=== PATIENT | male | born 1970 | race Two or more races ===

== ENCOUNTER 2023-12-27 15:57 | Inpatient (IN) | payer OTHER ==
[~2023-12-27] VITALS: Ht 175.3 cm; Wt 86.9 kg
[~2023-12-27 15:57] MED LIST: CLOP75TA28 PO; DIVA-93; GLIP5TAB21 PO; LEVE500T3 PO; LEVO75CA2 PO; OLAN20TA PO; PAROXETINE PO; PAXIL; QUET150T2; ROSU5TAB5 PO; VALS80TA4 PO; ZOLP10TA6 PO
[2023-12-27 17:01] LABS: Red Blood Cells 2.61 10^6/uL (4.5-5.90); White Blood Cell 6.4 10^3/uL (4.4-10.8)
[2023-12-27 17:02] LABS: Hematocrit 26.7 % (41.0-53.0); Hemoglobin 9.4 g/dL (13.5-17.5); Mean Corpuscular Hemoglobin 35.8 pg (28.0-32.0); Mean Corpuscular Volume 102.3 fL (80.0-100.0); Red Cell Distribution Width 14.8 % (11.8-14.3)
[2023-12-27 17:05] LABS: Chloride 101 mmol/L (98-107); Potassium 3.8 mmol/L (3.5-5.1); Sodium 139 mmol/L (136-145)
[2023-12-27 17:06] LABS: Anion Gap 10 (5-15); Carbon Dioxide 28 mmol/L (20-30)
[2023-12-27 17:11] LABS: BUN/Creatinine Ratio 14.6 (10.0-20.0); Blood Urea Nitrogen 23 mg/dL (9-23); Glucose 96 mg/dL (74-106)
[2023-12-27 17:12] VITALS: PULSE 89; RESP 16; O2SAT 96
[2023-12-27 17:15] LABS: Band Neutrophils % (manual) 0; Basophils % (manual) 0 (0.0-2.0); Blast Cells 0; Eosinophils % (manual) 0 (0-7); Metamyelocytes % 0; Myelocytes % 0; Promyelocytes % 0; Reactive Lymphocytes 0
[2023-12-27 17:16] LABS: Calcium 14.3 mg/dL (8.5-10.1)
[2023-12-27 18:36] LABS: Lymphocytes % (manual) 28 (10.0-50.0); Monocytes % (manual) 7 (0-12)
[2023-12-27 18:37] LABS: Macrocytosis Slight; Platelet Estimate Adequate
[2023-12-27 19:25] VITALS: PULSE 89; RESP 14; O2SAT 93
[2023-12-28] MEDS ORDERED: MORPHINE SULFATE INJ 2 MG/ml SYRG IV PRN ×2 (03:15→22:00)
[2023-12-28] MEDS ORDERED: ONDANSETRON HCL 4 MG/2 ML VIAL IV PRN (03:15)
[2023-12-28] MEDS ORDERED: NITROGLYCERIN 0.4 MG SL TAB SL PRN (03:15)
[2023-12-28] MEDS: SODIUM CHLORIDE 0.9% 1,000 ML IV SCH ×2 (03:22→14:30)
[2023-12-28 07:51] VITALS: PULSE 66; RESP 19; O2SAT 98
[2023-12-28] MEDS ORDERED: PAROXETINE 30 MG PO SCH (13:15)
[2023-12-28 14:40] VITALS: BP 126/60; PULSE 68; RESP 16; TEMP 98.7; O2SAT 91
[2023-12-28 14:45] VITALS: BP 126/60; PULSE 68; RESP 16; TEMP 98.7; O2SAT 91
[2023-12-28 16:51] VITALS: BP 128/69; PULSE 68; RESP 17; TEMP 98.4; O2SAT 97
[2023-12-28] MEDS ORDERED: CARB10TA21 PO (19:37)
[2023-12-28] MEDS ORDERED: DIVA-91 PO (19:37)
[2023-12-28] MEDS ORDERED: TRAZ-228 PO (19:37)
[2023-12-28] MEDS ORDERED: LEVE500T40 PO ×2 (19:37)
[2023-12-28] MEDS ORDERED: LEVO50TA7 PO (19:37)
[2023-12-28] MEDS ORDERED: LOSA-534 PO (19:37)
[2023-12-28] MEDS ORDERED: ASPI81CH74 PO (19:37)
[2023-12-28] MEDS ORDERED: ESCI20TA PO (19:37)
[2023-12-28] MEDS ORDERED: ATOR10TA PO (19:37)
[2023-12-28 20:00] VITALS: PULSE 65; PULSE 67; RESP 18; O2SAT 97
[2023-12-28 21:00] VITALS: BP 109/63; PULSE 67; RESP 18; TEMP 98.3; O2SAT 97
[2023-12-28] MEDS: traZODone HCL 50 MG TAB PO PRN (22:35)
[2023-12-28] MEDS: ATORVASTATIN 20 MG TAB PO SCH (22:37)
[2023-12-28] MEDS: HYDROcodone-ACET 5/325MG TAB PO PRN (22:38)
[2023-12-28] MEDS: levETIRAcetam 500 MG TAB PO SCH (22:38)
[2023-12-28] MEDS: OLANZapine 5 MG TAB PO SCH (22:39)
[2023-12-29] VITALS (8 sets, daily range): BP systolic 103–127; BP diastolic 62–81; PULSE 57–102; RESP 17–20; TEMP 97.6–98.6; O2SAT 92–97
[2023-12-29] MEDS ORDERED: LEVOTHYROXINE SODIUM 50 MCG TAB PO SCH (06:00)
[2023-12-29 06:22] LABS: White Blood Cell 4.3 10^3/uL (4.4-10.8)
[2023-12-29 06:26] LABS: Hematocrit 22.1 % (41.0-53.0); Mean Corpuscular Hemoglobin 37.3 pg (28.0-32.0); Mean Corpuscular Hgb Conc. 36.3 g/dL (32.0-36.0); Mean Corpuscular Volume 102.7 fL (80.0-100.0); Red Blood Cells 2.15 10^6/uL (4.5-5.90)
[2023-12-29 06:36] LABS: Band Neutrophils % (manual) 0; Basophils % (manual) 0 (0.0-2.0); Blast Cells 0; Metamyelocytes % 0; Myelocytes % 0; Promyelocytes % 0
[2023-12-29 06:43] LABS: Alanine Aminotransferase 19 U/L (7-40); Albumin 2.7 g/dL (3.2-4.8); Alkaline Phosphatase 65 U/L (46-116); Anion Gap 15 (5-15); Aspartate Aminotransferase 19 U/L (13-40); BUN/Creatinine Ratio 14.1 (10.0-20.0); Bilirubin, Total 0.4 mg/dL (0.2-1.0); Blood Urea Nitrogen 19 mg/dL (9-23); Carbon Dioxide 22 mmol/L (20-30); Chloride 103 mmol/L (98-107); Glucose 76 mg/dL (74-106); Potassium 3.7 mmol/L (3.5-5.1); Sodium 140 mmol/L (136-145); Total Protein 8.9 g/dL (5.7-8.2)
[2023-12-29] MEDS: PANTOPRAZOLE 40 MG TAB PO SCH (06:46)
[2023-12-29 06:49] LABS: Calcium 13.8 mg/dL (8.7-10.4)
[2023-12-29 08:41] LABS: Eosinophils % (manual) 2 (0-7); Lymphocytes % (manual) 32 (10.0-50.0); Macrocytosis Slight; Monocytes % (manual) 2 (0-12); Platelet Estimate Adequate; Reactive Lymphocytes 1
[2023-12-29] MEDS: LEVOTHYROXINE SODIUM 50 MCG TAB PO SCH (10:06)
[2023-12-29] MEDS: glipiZIDE 5 MG TAB PO SCH (10:07)
[2023-12-29] MEDS ORDERED: METF-370 PO (14:32)
[2023-12-29 17:11] LABS: % Iron Saturation 489.6 % (20-55)
[2023-12-30] VITALS (9 sets, daily range): BP systolic 115–158; BP diastolic 71–89; PULSE 65–118; RESP 16–18; TEMP 98–100.6; O2SAT 92–97
[2023-12-30 08:07] LABS: PSA Free 0.34 ng/mL; Prostate Specific Antigen 0.8 ng/mL (0.0-4.0)
[2023-12-30 10:28] LABS: INR 1.26 (0.9-1.15); Partial Thromboplastin Time 30.5 SEC (24.5-34.5); Prothrombin Time 13.1 sec (9.3-11.8)
[2023-12-31] VITALS (8 sets, daily range): BP systolic 107–132; BP diastolic 67–81; PULSE 65–98; RESP 16–19; TEMP 97.2–99.2; O2SAT 90–98
[2023-12-31 07:16] LABS: Basophils # (auto) 0 10 ^3/uL (0-0.2); Eosinophils # (auto) 0 10 ^3/uL (0-0.8); Hemoglobin 8.3 g/dL (13.5-17.5); Lymphocytes # (auto) 2.2 10 ^3/uL (0.4-5.4); Mean Corpuscular Volume 103.6 fL (80.0-100.0); Monocytes # (auto) 0.4 10 ^3/uL (0-1.3); Nucleated Red Blood Cells % 0.2 %
[2023-12-31 07:18] LABS: Basophils % (auto) 0.4 % (0.0-2.0); Eosinophils % (auto) 0.3 % (0.0-7.0); Hematocrit 23.3 % (41.0-53.0); Lymphocytes % (auto) 35.6 % (10.0-50.0); Mean Corpuscular Hgb Conc. 35.7 g/dL (32.0-36.0); Monocytes % (auto) 6.5 % (0.0-12.0); Neutrophils # (auto) 3.6 10 ^3/uL (1.6-8.6); Neutrophils % (auto) 57.2 % (37.0-80.0); Red Blood Cells 2.25 10^6/uL (4.5-5.90); Red Cell Distribution Width 15.1 % (11.8-14.3); White Blood Cell 6.3 10^3/uL (4.4-10.8)
[2023-12-31 07:31] LABS: Alanine Aminotransferase 20 U/L (7-40); Albumin 3.2 g/dL (3.2-4.8); Alkaline Phosphatase 68 U/L (46-116); Anion Gap 10 (5-15); Aspartate Aminotransferase 24 U/L (13-40); BUN/Creatinine Ratio 10.5 (10.0-20.0); Blood Urea Nitrogen 16 mg/dL (9-23); Carbon Dioxide 29 mmol/L (20-30); Chloride 98 mmol/L (98-107); Glucose 85 mg/dL (74-106); Potassium 3.8 mmol/L (3.5-5.1); Sodium 137 mmol/L (136-145)
[2023-12-31 07:32] LABS: Bilirubin, Total 0.3 mg/dL (0.2-1.0)
[2023-12-31 07:47] LABS: Calcium 15.4 mg/dL (8.5-10.1)
[2023-12-31] MEDS: SODIUM CHLORIDE 0.9% 1,000 ML IV SCH (08:00)
[2023-12-31 08:06] LABS: Immunoglobulin A 4895 mg/dL (90-386); Immunoglobulin G, Serum 346 mg/dL (603-1613); Immunoglobulin M 12 mg/dL (20-172)
[2023-12-31] MEDS: methylPREDNISolone SOD SUCC 125 MG/2 ML VL IV SCH (08:57)
[2023-12-31] MEDS: ZOLEDRONIC ACID 4 MG in SODIUM CHL 0.9% 100 ML IV ONE (12:49)
[2023-12-31 14:06] LABS: Albumin 3.2 g/dL (2.9-4.4); Alpha-1-Globulin 0.2 g/dL (0.0-0.4); Alpha-2-Globulin 0.5 g/dL (0.4-1.0); Gamma Globulin 0.5 g/dL (0.4-1.8); Globulin Total 6.5 g/dL (2.2-3.9); Protein Total Serum 9.7 g/dL (6.0-8.5)
[2024-01-01] VITALS (8 sets, daily range): BP systolic 108–123; BP diastolic 64–77; PULSE 76–101; RESP 17–21; TEMP 97.6–98.6; O2SAT 90–99
[2024-01-01 06:38] LABS: Basophils # (auto) 0 10 ^3/uL (0-0.2); Eosinophils # (auto) 0 10 ^3/uL (0-0.8); Hemoglobin 8.9 g/dL (13.5-17.5); Nucleated Red Blood Cells % 0.2 %; Red Blood Cells 2.42 10^6/uL (4.5-5.90)
[2024-01-01 06:43] LABS: Basophils % (auto) 0.1 % (0.0-2.0); Hematocrit 25.3 % (41.0-53.0); Lymphocytes # (auto) 1.3 10 ^3/uL (0.4-5.4); Mean Corpuscular Hemoglobin 36.8 pg (28.0-32.0); Mean Corpuscular Hgb Conc. 35.2 g/dL (32.0-36.0); Mean Corpuscular Volume 104.6 fL (80.0-100.0); Monocytes # (auto) 0.1 10 ^3/uL (0-1.3); Monocytes % (auto) 1.9 % (0.0-12.0); Neutrophils # (auto) 5.9 10 ^3/uL (1.6-8.6); Red Cell Distribution Width 15.1 % (11.8-14.3); White Blood Cell 7.4 10^3/uL (4.4-10.8)
[2024-01-01 06:51] LABS: Anion Gap 15 (5-15); Carbon Dioxide 24 mmol/L (20-30); Chloride 97 mmol/L (98-107); Potassium 3.8 mmol/L (3.5-5.1); Sodium 136 mmol/L (136-145)
[2024-01-01 06:56] LABS: BUN/Creatinine Ratio 16.5 (10.0-20.0); Glucose 135 mg/dL (74-106)
[2024-01-01 07:03] LABS: Blood Urea Nitrogen 27 mg/dL (9-23)
[2024-01-01 07:06] LABS: Calcium 14.3 mg/dL (8.5-10.1)
[2024-01-01] MEDS: fentaNYL CITRATE 100 MCG/2 ML VL IV ONE (09:32)
[2024-01-01] MEDS: LIDOCAINE 2%HCL (LOCAL ANESTH.) INJ 10ml MDV ONE (09:33)
[2024-01-01] MEDS: MIDAZOLAM HCL 2MG/2ML 2ml VIAL (1mg/ml) IV ONE (09:33)
[2024-01-02 01:00] VITALS: BP 115/64; PULSE 82; RESP 17; TEMP 98.2; O2SAT 93
[2024-01-02 05:27] VITALS: BP 113/62; PULSE 89; RESP 18; TEMP 98; O2SAT 100
[2024-01-02 05:55] LABS: Basophils # (auto) 0 10 ^3/uL (0-0.2); Eosinophils # (auto) 0 10 ^3/uL (0-0.8); Lymphocytes # (auto) 0.8 10 ^3/uL (0.4-5.4); Monocytes # (auto) 0.2 10 ^3/uL (0-1.3)
[2024-01-02 05:57] LABS: Eosinophils % (auto) 0.1 % (0.0-7.0); Hematocrit 21.6 % (41.0-53.0); Hemoglobin 7.8 g/dL (13.5-17.5); Lymphocytes % (auto) 11.4 % (10.0-50.0); Mean Corpuscular Hemoglobin 37.6 pg (28.0-32.0); Mean Corpuscular Hgb Conc. 36.4 g/dL (32.0-36.0); Mean Corpuscular Volume 103.3 fL (80.0-100.0); Neutrophils # (auto) 6.2 10 ^3/uL (1.6-8.6); Neutrophils % (auto) 85.5 % (37.0-80.0); Nucleated Red Blood Cells % 0.2 %; Red Blood Cells 2.09 10^6/uL (4.5-5.90); Red Cell Distribution Width 15.2 % (11.8-14.3); White Blood Cell 7.3 10^3/uL (4.4-10.8)
[2024-01-02 06:09] LABS: Anion Gap 10 (5-15); Carbon Dioxide 26 mmol/L (20-30); Chloride 101 mmol/L (98-107); Sodium 137 mmol/L (136-145)
[2024-01-02 06:10] LABS: Calcium 11.2 mg/dL (8.7-10.4)
[2024-01-02 06:15] LABS: BUN/Creatinine Ratio 20.3 (10.0-20.0); Blood Urea Nitrogen 29 mg/dL (9-23); Glucose 119 mg/dL (74-106)
[2024-01-02 08:00] VITALS: PULSE 84; PULSE 88; RESP 20; O2SAT 96
[2024-01-02] MEDS ORDERED: PANT40TA2 PO (09:59)
[2024-01-02] MEDS ORDERED: NALO4SPR2 (09:59)
[2024-01-02] MEDS ORDERED: HYDR-4902 PO (09:59)
[2024-01-02] MEDS ORDERED: FER325T PO (09:59)
[2024-01-02 15:35] VITALS: BP 117/77; PULSE 80; RESP 19; TEMP 98.6; O2SAT 96
[2024-01-02 17:30] VITALS: BP 120/74; PULSE 79; RESP 19; TEMP 98.5; O2SAT 99
== END 2024-01-02 18:35 | disposition home or self-care (01) | DRG 840 ==
LOC: ER 15:57 → TELE 12-28 03:12 → TELE-E-ADS 12-28 15:11
PROVIDERS: ADMIT Internal Medicine; ATTEND Internal Medicine
PROC: 079T3ZX Drainage of Bone Marrow, Percutaneous Approach, Diagnostic (ICD-10-PCS; principal; 2023-12-30)
PROC: 07DR3ZX Extraction of Iliac Bone Marrow, Percutaneous Approach, Diagnostic (ICD-10-PCS; 2023-12-30)
DX: C90.00 Multiple myeloma not having achieved remission (principal); J96.01 Acute respiratory failure with hypoxia; N17.0 Acute kidney failure with tubular necrosis; E83.52 Hypercalcemia; E03.9 Hypothyroidism, unspecified; I67.1 Cerebral aneurysm, nonruptured; E87.5 Hyperkalemia; E78.5 Hyperlipidemia, unspecified; E11.9 Type 2 diabetes mellitus without complications; D53.9 Nutritional anemia, unspecified; I10 Essential (primary) hypertension; R77.1 Abnormality of globulin; G40.909 Epilepsy, unspecified, not intractable, without status epilepticus; F17.210 Nicotine dependence, cigarettes, uncomplicated; K59.00 Constipation, unspecified; Z88.5 Allergy status to narcotic agent; Z80.0 Family history of malignant neoplasm of digestive organs
CPT/HCPCS: 10005; 36415; 71045; 72192; 74176; 77012; 77074; 80048; 80053; 80164; 82378; 82607; 82746; 82784; 82962; 83521; 83540; 83550; 83615; 84154; 84155; 84165; 84443; 85007; 85025; 85027; 85045; 85610; 85730; 86334; 86880; 96360; 97110; 97116; 97163; 97530; G0378; J2001; J2250; J3489

== ENCOUNTER 2024-02-05 09:29 | Inpatient (IN) | payer OTHER ==
[2024-02-05] VITALS (9 sets, daily range): BP systolic 107–121; BP diastolic 67–76; PULSE 58–74; RESP 14–20; TEMP 97.5–98.6; O2SAT 96–97
[~2024-02-05] VITALS: Ht 175.3 cm; Wt 81.1 kg
[~2024-02-05 09:29] MED LIST changes: +ATOR10TA PO; +CARB10TA21 PO; -CLOP75TA28 PO; +DIVA-91 PO; -DIVA-93; +ESCI20TA PO; +FER325T PO; +HYDR-4902 PO; -LEVE500T3 PO; +LEVE500T40 PO; +LEVO50TA7 PO; -LEVO75CA2 PO; +LOSA-534 PO; +METF-370 PO; +NALO4SPR2; +PANT40TA2 PO; -PAXIL; -QUET150T2; -ROSU5TAB5 PO; +TRAZ-228 PO; -VALS80TA4 PO; -ZOLP10TA6 PO
[2024-02-05] MEDS: SODIUM CHLORIDE 0.9% 1,000 ML IV ONE (10:37)
[2024-02-05 10:57] LABS: Albumin 3.1 g/dL (3.2-4.8); Alkaline Phosphatase 67 U/L (46-116); Anion Gap 10 (5-15); Aspartate Aminotransferase 12 U/L (13-40); BUN/Creatinine Ratio 7.9 (10.0-20.0); Blood Urea Nitrogen 9 mg/dL (9-23); Calcium 9.6 mg/dL (8.7-10.4); Carbon Dioxide 27 mmol/L (20-30); Chloride 101 mmol/L (98-107); Glucose 82 mg/dL (74-106); Potassium 4.4 mmol/L (3.5-5.1); Sodium 138 mmol/L (136-145); Total Protein 10.3 g/dL (5.7-8.2)
[2024-02-05 11:05] LABS: Alanine Aminotransferase < 9 U/L (7-40); Bilirubin, Total 0.2 mg/dL (0.2-1.0)
[2024-02-05] MEDS: HYDROcodone-ACET 5/325MG TAB PO ONE (11:09)
[2024-02-05 11:17] LABS: INR 1.4 (0.9-1.15); Prothrombin Time 14.5 sec (9.3-11.8)
[2024-02-05 12:22] LABS: Hematocrit 17.4 % (41.0-53.0); Mean Corpuscular Hemoglobin 37.1 pg (28.0-32.0); Mean Corpuscular Hgb Conc. 35.4 g/dL (32.0-36.0); Platelet Count (auto) 104 10^3/uL (140-450); Red Blood Cells 1.65 10^6/uL (4.5-5.90); Red Cell Distribution Width 18.3 % (11.8-14.3); White Blood Cell 4.5 10^3/uL (4.4-10.8)
[2024-02-05 12:31] LABS: Band Neutrophils % (manual) 0; Basophils % (manual) 0 (0.0-2.0); Blast Cells 0; Eosinophils % (manual) 0 (0-7); Metamyelocytes % 0; Myelocytes % 0; Promyelocytes % 0
[2024-02-05 12:50] LABS: Hypochromia Slight; Lymphocytes % (manual) 59 (10.0-50.0); Macrocytosis Slight; Monocytes % (manual) 1 (0-12); Reactive Lymphocytes 10; Rouleau Present
[2024-02-05 12:51] LABS: Hemoglobin 6.1 g/dL (13.5-17.5); Platelet Estimate Decreased
[2024-02-05] MEDS ORDERED: NITROGLYCERIN 0.4 MG SL TAB SL PRN (14:30)
[2024-02-05] MEDS ORDERED: ONDANSETRON HCL 4 MG/2 ML VIAL IV PRN (14:30)
[2024-02-05] MEDS ORDERED: DOCUSATE SOD 100 MG CAP PO PRN (14:30)
[2024-02-05] MEDS: SODIUM CHLORIDE 0.9% 1,000 ML IV SCH (15:19)
[2024-02-06] VITALS (11 sets, daily range): BP systolic 99–114; BP diastolic 58–69; PULSE 50–65; RESP 17–20; TEMP 97.8–98.4; O2SAT 92–97
[2024-02-06 01:22] LABS: Basophils # (auto) 0 10 ^3/uL (0-0.2); Eosinophils # (auto) 0 10 ^3/uL (0-0.8); Lymphocytes # (auto) 1.9 10 ^3/uL (0.4-5.4); Mean Corpuscular Hemoglobin 36.1 pg (28.0-32.0); Monocytes # (auto) 0.3 10 ^3/uL (0-1.3); Neutrophils # (auto) 1.3 10 ^3/uL (1.6-8.6); White Blood Cell 3.5 10^3/uL (4.4-10.8)
[2024-02-06 01:25] LABS: Basophils % (auto) 0.1 % (0.0-2.0); Eosinophils % (auto) 0.1 % (0.0-7.0); Hematocrit 18.3 % (41.0-53.0); Lymphocytes % (auto) 54.9 % (10.0-50.0); Mean Corpuscular Hgb Conc. 35.7 g/dL (32.0-36.0); Mean Corpuscular Volume 101.2 fL (80.0-100.0); Neutrophils % (auto) 36.9 % (37.0-80.0); Nucleated Red Blood Cells % 0.5 %; Platelet Count (auto) 102 10^3/uL (140-450); Red Blood Cells 1.81 10^6/uL (4.5-5.90)
[2024-02-06 01:30] LABS: Red Cell Distribution Width 20.4 % (11.8-14.3)
[2024-02-06 01:31] LABS: Hemoglobin 6.5 g/dL (13.5-17.5)
[2024-02-06] MEDS ORDERED: ASPI325T6 PO (04:23)
[2024-02-06] MEDS ORDERED: ASPI-543 PO (04:23)
[2024-02-06 09:52] LABS: Basophils # (auto) 0 10 ^3/uL (0-0.2); Basophils % (auto) 0.2 % (0.0-2.0); Eosinophils # (auto) 0 10 ^3/uL (0-0.8); Lymphocytes # (auto) 2.1 10 ^3/uL (0.4-5.4); Monocytes % (auto) 7.1 % (0.0-12.0); Neutrophils # (auto) 1.2 10 ^3/uL (1.6-8.6); Neutrophils % (auto) 33.7 % (37.0-80.0); Nucleated Red Blood Cells % 0.8 %; White Blood Cell 3.5 10^3/uL (4.4-10.8)
[2024-02-06 09:56] LABS: Eosinophils % (auto) 0.2 % (0.0-7.0); Hematocrit 21.9 % (41.0-53.0); Hemoglobin 7.8 g/dL (13.5-17.5); Lymphocytes % (auto) 58.8 % (10.0-50.0); Mean Corpuscular Hemoglobin 35.3 pg (28.0-32.0); Mean Corpuscular Hgb Conc. 35.5 g/dL (32.0-36.0); Mean Corpuscular Volume 99.6 fL (80.0-100.0); Monocytes # (auto) 0.2 10 ^3/uL (0-1.3); Platelet Count (auto) 87 10^3/uL (140-450); Red Blood Cells 2.19 10^6/uL (4.5-5.90); Red Cell Distribution Width 21.3 % (11.8-14.3)
[2024-02-06 10:11] LABS: Albumin 2.7 g/dL (3.2-4.8); Alkaline Phosphatase 54 U/L (46-116); Anion Gap 9 (5-15); Aspartate Aminotransferase 13 U/L (13-40); BUN/Creatinine Ratio 9.3 (10.0-20.0); Bilirubin, Total 0.5 mg/dL (0.2-1.0); Blood Urea Nitrogen 10 mg/dL (9-23); Calcium 9.3 mg/dL (8.7-10.4); Carbon Dioxide 26 mmol/L (20-30); Chloride 104 mmol/L (98-107); Glucose 103 mg/dL (74-106); Potassium 4.1 mmol/L (3.5-5.1); Sodium 139 mmol/L (136-145)
[2024-02-06 10:12] LABS: Total Protein 9.4 g/dL (5.7-8.2)
[2024-02-06 10:20] LABS: Alanine Aminotransferase < 9 U/L (7-40)
[2024-02-07] VITALS (8 sets, daily range): BP systolic 95–137; BP diastolic 59–74; PULSE 51–93; RESP 18–21; TEMP 97.8–98.3; O2SAT 91–98
[2024-02-07 07:02] LABS: Basophils # (auto) 0 10 ^3/uL (0-0.2); Basophils % (auto) 0.1 % (0.0-2.0); Eosinophils # (auto) 0 10 ^3/uL (0-0.8); Eosinophils % (auto) 0.2 % (0.0-7.0); Hemoglobin 7.4 g/dL (13.5-17.5); Monocytes # (auto) 0.3 10 ^3/uL (0-1.3); Neutrophils # (auto) 1.3 10 ^3/uL (1.6-8.6)
[2024-02-07 07:06] LABS: Hematocrit 20.7 % (41.0-53.0); Lymphocytes # (auto) 1.7 10 ^3/uL (0.4-5.4); Lymphocytes % (auto) 52.3 % (10.0-50.0); Mean Corpuscular Hemoglobin 35.6 pg (28.0-32.0); Mean Corpuscular Hgb Conc. 35.6 g/dL (32.0-36.0); Monocytes % (auto) 7.7 % (0.0-12.0); Neutrophils % (auto) 39.7 % (37.0-80.0); Nucleated Red Blood Cells % 0.7 %; Platelet Count (auto) 82 10^3/uL (140-450); Red Blood Cells 2.07 10^6/uL (4.5-5.90); White Blood Cell 3.3 10^3/uL (4.4-10.8)
[2024-02-07 07:11] LABS: Red Cell Distribution Width 20.6 % (11.8-14.3)
[2024-02-07 07:18] LABS: Albumin 2.6 g/dL (3.2-4.8); Alkaline Phosphatase 48 U/L (46-116); Anion Gap 12 (5-15); Aspartate Aminotransferase 13 U/L (13-40); BUN/Creatinine Ratio 10.3 (10.0-20.0); Blood Urea Nitrogen 10 mg/dL (9-23); Calcium 8.6 mg/dL (8.7-10.4); Carbon Dioxide 24 mmol/L (20-30); Chloride 104 mmol/L (98-107); Glucose 75 mg/dL (74-106); Sodium 140 mmol/L (136-145)
[2024-02-07 07:19] LABS: Bilirubin, Total 0.4 mg/dL (0.2-1.0)
[2024-02-07 07:20] LABS: Total Protein 9.2 g/dL (5.7-8.2)
[2024-02-07 07:21] LABS: Alanine Aminotransferase < 9 U/L (7-40)
[2024-02-07 14:35] LABS: % Iron Saturation 703.5 % (20-55)
[2024-02-07] MEDS: IRON SUCROSE COMPLEX 100 ML IV SCH (18:48)
[2024-02-07] MEDS: ATORVASTATIN 20 MG TAB PO SCH (22:00)
[2024-02-07] MEDS: CARBIDOPA LEVODOPA PO SCH (22:00)
[2024-02-07] MEDS: levETIRAcetam 500 MG TAB PO SCH (22:06)
[2024-02-08 05:00] VITALS: BP 118/70; PULSE 58; RESP 18; TEMP 98.4; O2SAT 94
[2024-02-08 05:02] LABS: Hemoglobin 7.5 g/dL (13.5-17.5); White Blood Cell 3.5 10^3/uL (4.4-10.8)
[2024-02-08 05:04] LABS: Hematocrit 21.3 % (41.0-53.0); Mean Corpuscular Hemoglobin 35.4 pg (28.0-32.0); Mean Corpuscular Hgb Conc. 35.3 g/dL (32.0-36.0); Mean Corpuscular Volume 100.2 fL (80.0-100.0); Platelet Count (auto) 82 10^3/uL (140-450); Red Blood Cells 2.12 10^6/uL (4.5-5.90)
[2024-02-08 05:15] LABS: Albumin 2.7 g/dL (3.2-4.8); Alkaline Phosphatase 54 U/L (46-116); Anion Gap 7 (5-15); Aspartate Aminotransferase 15 U/L (13-40); BUN/Creatinine Ratio 9.4 (10.0-20.0); Bilirubin, Total 0.2 mg/dL (0.2-1.0); Blood Urea Nitrogen 10 mg/dL (9-23); Carbon Dioxide 27 mmol/L (20-30); Chloride 105 mmol/L (98-107); Glucose 103 mg/dL (74-106); Potassium 3.7 mmol/L (3.5-5.1); Sodium 139 mmol/L (136-145); Total Protein 9.1 g/dL (5.7-8.2)
[2024-02-08 05:19] LABS: Alanine Aminotransferase < 9 U/L (7-40)
[2024-02-08 05:22] LABS: Red Cell Distribution Width 20.3 % (11.8-14.3)
[2024-02-08 05:24] LABS: Basophils % (manual) 0 (0.0-2.0); Blast Cells 0; Metamyelocytes % 0; Myelocytes % 0; Promyelocytes % 0; Reactive Lymphocytes 0
[2024-02-08 05:56] LABS: Anisocytosis Slight; Band Neutrophils % (manual) 4; Eosinophils % (manual) 1 (0-7); Lymphocytes % (manual) 51 (10.0-50.0); Macrocytosis Slight; Monocytes % (manual) 5 (0-12); Platelet Estimate Decreased
[2024-02-08] MEDS: LEVOTHYROXINE SODIUM 50 MCG TAB PO SCH (06:21)
[2024-02-08] MEDS: HYDROcodone-ACET 5/325MG TAB PO PRN (06:21)
[2024-02-08 08:15] VITALS: PULSE 62; RESP 19; O2SAT 92
[2024-02-08 09:00] VITALS: BP 119/67; PULSE 62; RESP 19; TEMP 97.9; O2SAT 92
[2024-02-08] MEDS: PANTOPRAZOLE 40 MG TAB PO SCH (09:31)
[2024-02-08] MEDS: LOSARTAN POTASSIUM 50 MG TAB PO SCH (09:32)
[2024-02-08] MEDS: ESCITALOPRAM OXALATE 20 MG PO SCH (10:00)
[2024-02-08 13:00] VITALS: BP 122/79; PULSE 64; RESP 18; TEMP 97.1; O2SAT 98
[2024-02-08 17:00] VITALS: BP 120/71; PULSE 59; RESP 19; TEMP 98; O2SAT 96
[2024-02-08 22:00] VITALS: BP 119/71; PULSE 59; RESP 18; TEMP 99.6; O2SAT 95
[2024-02-09] VITALS (16 sets, daily range): BP systolic 109–142; BP diastolic 60–85; PULSE 55–93; RESP 14–19; TEMP 97.1–98.7; O2SAT 92–98
[2024-02-09 07:33] LABS: Hemoglobin 7.4 g/dL (13.5-17.5); Mean Corpuscular Hemoglobin 35.7 pg (28.0-32.0); Mean Corpuscular Hgb Conc. 35.4 g/dL (32.0-36.0); Platelet Count (auto) 82 10^3/uL (140-450); Red Blood Cells 2.08 10^6/uL (4.5-5.90); Red Cell Distribution Width 20.1 % (11.8-14.3); White Blood Cell 3.6 10^3/uL (4.4-10.8)
[2024-02-09 07:34] LABS: Band Neutrophils % (manual) 0; Basophils % (manual) 0 (0.0-2.0); Blast Cells 0; Eosinophils % (manual) 0 (0-7); Myelocytes % 0; Promyelocytes % 0; Reactive Lymphocytes 0
[2024-02-09 08:49] LABS: Lymphocytes % (manual) 44 (10.0-50.0); Macrocytosis Slight; Metamyelocytes % 1; Monocytes % (manual) 4 (0-12); Platelet Estimate Decreased
[2024-02-09] MEDS ORDERED: TRAZ-228 PO (14:56)
[2024-02-09] MEDS ORDERED: ASPI-325 PO (14:56)
[2024-02-09] MEDS ORDERED: [UNRECOGNIZED DRUG - CODE] IV (14:56)
[2024-02-09] MEDS ORDERED: CARB-87 PO (14:56)
[2024-02-09] MEDS ORDERED: ESCI1TAB37 PO (14:56)
[2024-02-09] MEDS ORDERED: DEX4T PO (14:56)
[2024-02-09] MEDS ORDERED: ACYC1TAB2 PO (14:56)
[2024-02-09] MEDS ORDERED: DIVA1TAB39 PO (14:56)
[2024-02-09] MEDS ORDERED: FERR325T20 PO (14:56)
[2024-02-09] MEDS ORDERED: CLOP75TA70 PO (14:56)
[2024-02-09] MEDS ORDERED: ATOR10TA52 PO (14:56)
[2024-02-09] MEDS ORDERED: DARA1SOL2 SC (14:56)
[2024-02-09] MEDS ORDERED: PANT40T PO (14:56)
[2024-02-09] MEDS ORDERED: [UNRECOGNIZED DRUG - CODE] (14:56)
[2024-02-09] MEDS ORDERED: LEVE500T3 PO (14:56)
[2024-02-09] MEDS ORDERED: HYDR-4072 PO (14:56)
[2024-02-09] MEDS ORDERED: ASPI81CH59 PO (14:56)
[2024-02-09] MEDS: CARBIDOPA W LEVODOPA 10/100mg TABLET PO SCH (15:30)
[2024-02-09] MEDS: CITALOPRAM HYDROBR 20 MG TAB PO SCH (17:17)
[2024-02-10] VITALS (8 sets, daily range): BP systolic 107–138; BP diastolic 63–77; PULSE 52–74; RESP 16–24; TEMP 36.8; O2SAT 9–99
[2024-02-10 07:12] LABS: Hemoglobin 8.6 g/dL (13.5-17.5); Platelet Count (auto) 94 10^3/uL (140-450)
[2024-02-10 07:17] LABS: Hematocrit 24.1 % (41.0-53.0); Mean Corpuscular Hemoglobin 35.6 pg (28.0-32.0); Mean Corpuscular Hgb Conc. 35.6 g/dL (32.0-36.0); Red Blood Cells 2.41 10^6/uL (4.5-5.90); Red Cell Distribution Width 19.6 % (11.8-14.3)
[2024-02-10 07:20] LABS: Basophils % (manual) 0 (0.0-2.0); Blast Cells 0; Eosinophils % (manual) 0 (0-7); Metamyelocytes % 0; Myelocytes % 0; Promyelocytes % 0
[2024-02-10 07:48] LABS: Band Neutrophils % (manual) 3; Lymphocytes % (manual) 41 (10.0-50.0); Monocytes % (manual) 5 (0-12); Platelet Estimate Decreased; Reactive Lymphocytes 5
[2024-02-10 07:49] LABS: Rouleau Present
[2024-02-10] MEDS ORDERED: MIDAZOLAM HCL 5 MG/ML-1ML VIAL ONE (08:44)
[2024-02-10] MEDS ORDERED: LIDOCAINE VISCOUS 2% 15ML UD ONE (08:44)
[2024-02-10] MEDS ORDERED: SODIUM CHLORIDE LOCK 0 ML ONE (08:44)
[2024-02-10] MEDS ORDERED: fentaNYL CITRATE 100 MCG/2 ML VL ONE (08:45)
[2024-02-10] MEDS ORDERED: diphenhdrAMINE HCL 50 MG/1 ML VL ONE (08:45)
[2024-02-10] MEDS ORDERED: ONDANSETRON HCL 4 MG/2 ML VIAL IV ONE (13:15)
[2024-02-10] MEDS ORDERED: MIDAZOLAM HCL 2MG/2ML 2ml VIAL (1mg/ml) ONE (13:32)
[2024-02-10] MEDS ORDERED: PROPOFOL 10 MG/ML 20 ML IV ONE (14:35)
[2024-02-10] MEDS ORDERED: SUCR1TAB31 OR (14:44)
[2024-02-10] MEDS ORDERED: PANT40TA2 PO (14:44)
[2024-02-10] MEDS ORDERED: SUCRALFATE 1 GM/10 ML ORAL SUSP GT SCH (22:00)
== END 2024-02-10 16:30 | disposition home or self-care (01) | DRG 841 ==
LOC: ER 09:29 → OVERFLOW 14:25 → WEST WING 02-06 03:26
PROVIDERS: ADMIT Nurse Practitioner Family; ATTEND Nurse Practitioner Family
PROC: 30233N1 Transfusion of Nonautologous Red Blood Cells into Peripheral Vein, Percutaneous Approach (ICD-10-PCS; principal; 2024-02-05)
PROC: 0DB98ZX Excision of Duodenum, Via Natural or Artificial Opening Endoscopic, Diagnostic (ICD-10-PCS; 2024-02-10)
PROC: 0DB68ZX Excision of Stomach, Via Natural or Artificial Opening Endoscopic, Diagnostic (ICD-10-PCS; 2024-02-10)
DX: C90.00 Multiple myeloma not having achieved remission (principal); D61.818 Other pancytopenia; R47.01 Aphasia; K62.5 Hemorrhage of anus and rectum; I67.1 Cerebral aneurysm, nonruptured; G89.29 Other chronic pain; D72.819 Decreased white blood cell count, unspecified; M54.50 Low back pain, unspecified; N40.0 Benign prostatic hyperplasia without lower urinary tract symptoms; I10 Essential (primary) hypertension; E11.9 Type 2 diabetes mellitus without complications; K29.70 Gastritis, unspecified, without bleeding; R47.1 Dysarthria and anarthria; K20.90 Esophagitis, unspecified without bleeding; K44.9 Diaphragmatic hernia without obstruction or gangrene; G40.909 Epilepsy, unspecified, not intractable, without status epilepticus; E78.5 Hyperlipidemia, unspecified; E83.52 Hypercalcemia; E03.9 Hypothyroidism, unspecified; Z88.5 Allergy status to narcotic agent; Z88.8 Allergy status to other drugs, medicaments and biological substances; Z79.899 Other long term (current) drug therapy; Z82.3 Family history of stroke; Z83.3 Family history of diabetes mellitus
CPT/HCPCS: 36430; 99285; P9021; 36415; 80053; 83036; 83540; 83550; 85007; 85025; 85027; 85610; 86850; 86900; 86901; 86920; 86922; G0378; J1756; J2250; J2704

== ENCOUNTER 2024-02-25 12:10 | Inpatient (IN) | payer OTHER ==
[~2024-02-25] VITALS: Ht 172.7 cm; Wt 73.4 kg
[2024-02-25] MEDS: SODIUM CHLORIDE 0.9% 1,000 ML IV SCH (01:00)
[~2024-02-25 12:10] MED LIST changes: +ACYC1TAB2 PO; +CARB-87 PO; +DARA1SOL2 SC; +DEX4T PO; -GLIP5TAB21 PO; +SUCR1TAB31 OR; +[UNRECOGNIZED DRUG - CODE]
[2024-02-25 15:42] LABS: Basophils # (auto) 0 10 ^3/uL (0-0.2); Basophils % (auto) 0.2 % (0.0-2.0); Eosinophils # (auto) 0 10 ^3/uL (0-0.8); Hematocrit 21.5 % (41.0-53.0); Hemoglobin 7.2 g/dL (13.5-17.5); Lymphocytes # (auto) 1.9 10 ^3/uL (0.4-5.4); Lymphocytes % (auto) 34.4 % (10.0-50.0); Mean Corpuscular Hemoglobin 34.2 pg (28.0-32.0); Mean Corpuscular Hgb Conc. 33.4 g/dL (32.0-36.0); Mean Corpuscular Volume 102.5 fL (80.0-100.0); Monocytes # (auto) 0.4 10 ^3/uL (0-1.3); Monocytes % (auto) 7.1 % (0.0-12.0); Neutrophils # (auto) 3.2 10 ^3/uL (1.6-8.6); Neutrophils % (auto) 58.3 % (37.0-80.0); Nucleated Red Blood Cells % 0.6 %; Platelet Count (auto) 82 10^3/uL (140-450); White Blood Cell 5.4 10^3/uL (4.4-10.8)
[2024-02-25 15:44] LABS: Red Cell Distribution Width 20.4 % (11.8-14.3)
[2024-02-25 16:37] LABS: Platelet Estimate Decreased
[2024-02-25 16:38] LABS: Anisocytosis Slight; Macrocytosis Slight
[2024-02-25 17:23] LABS: Alanine Aminotransferase 14 U/L (7-40); Albumin 3.6 g/dL (3.2-4.8); Alkaline Phosphatase 42 U/L (46-116); Anion Gap 16 (5-15); Aspartate Aminotransferase 22 U/L (13-40); BUN/Creatinine Ratio 17.4 (10.0-20.0); Bilirubin, Total 0.5 mg/dL (0.2-1.0); Blood Urea Nitrogen 29 mg/dL (9-23); Carbon Dioxide 22 mmol/L (20-30); Chloride 97 mmol/L (98-107); Glucose 104 mg/dL (74-106); Potassium 4.4 mmol/L (3.5-5.1); Sodium 135 mmol/L (136-145)
[2024-02-25 17:33] LABS: Calcium 17.9 mg/dL (8.7-10.4)
[2024-02-25 18:07] LABS: INR 1.41 (0.9-1.15); Prothrombin Time 14.6 sec (9.3-11.8)
[2024-02-25 18:40] LABS: Total Protein 11.5 g/dL (5.7-8.2)
[2024-02-25] MEDS ORDERED: DEXTROSE (50%) 50ML SYRG IV PRN (21:45)
[2024-02-25] MEDS ORDERED: DOCUSATE SOD 100 MG CAP PO PRN (21:45)
[2024-02-25] MEDS ORDERED: HYDROcodone-ACET 5/325MG TAB PO PRN (21:45)
[2024-02-25] MEDS ORDERED: ACETAMINOPHEN 325 MG TAB PO PRN (21:45)
[2024-02-25 22:31] VITALS: PULSE 95; RESP 13; O2SAT 98
[2024-02-25] MEDS ORDERED: NITROGLYCERIN 0.4 MG SL TAB SL PRN (22:45)
[2024-02-25] MEDS ORDERED: MORPHINE SULFATE INJ 2 MG/ml SYRG IV PRN (22:45)
[2024-02-26] VITALS (13 sets, daily range): BP systolic 132–147; BP diastolic 82–95; PULSE 62–87; RESP 16–24; TEMP 97.5–98.4; O2SAT 94–98
[2024-02-26] MEDS: ACCU-CHEK COMFORT CURVE STRIP VI SCH (00:58)
[2024-02-26] MEDS: InsuLIN REG 1unit/0.01ml Soln (100units/ml) SC SCH ×2 (00:59→06:30)
[2024-02-26] MEDS: levETIRAcetam 500 mg/100ml 100 ML IV SCH (01:03)
[2024-02-26] MEDS: FUROSEMIDE 20 MG/2 ML VIAL IV ONE (01:07)
[2024-02-26] MEDS: OCTREOTIDE ACETATE 100 MCG/ML VL SUBCUT ONE (01:08)
[2024-02-26] MEDS: PANTOPRAZOLE 40 MG/10 ML VIAL INJ IV ONE (01:09)
[2024-02-26] MEDS: cefTRIAXone 1GM/50ML D5W 50 ML IV ONE (01:33)
[2024-02-26] MEDS ORDERED: ASPI-543 PO (04:53)
[2024-02-26] MEDS ORDERED: PANT40TA2 PO (04:53)
[2024-02-26] MEDS ORDERED: FERR325T24 PO (04:53)
[2024-02-26] MEDS: LEVOTHYROXINE SODIUM 50 MCG TAB PO SCH (06:28)
[2024-02-26] MEDS: ONDANSETRON HCL 4 MG/2 ML VIAL IV PRN (06:55)
[2024-02-26 08:39] LABS: Hematocrit 25.4 % (41.0-53.0); Hemoglobin 9.1 g/dL (13.5-17.5); Mean Corpuscular Hemoglobin 35.4 pg (28.0-32.0); Mean Corpuscular Hgb Conc. 35.7 g/dL (32.0-36.0); Platelet Count (auto) 80 10^3/uL (140-450); Red Blood Cells 2.57 10^6/uL (4.5-5.90); White Blood Cell 4.9 10^3/uL (4.4-10.8)
[2024-02-26 08:44] LABS: Red Cell Distribution Width 20.6 % (11.8-14.3)
[2024-02-26 08:47] LABS: Band Neutrophils % (manual) 0; Basophils % (manual) 0 (0.0-2.0); Blast Cells 0; Eosinophils % (manual) 0 (0-7); Metamyelocytes % 0; Myelocytes % 0; Promyelocytes % 0
[2024-02-26 09:01] LABS: Anisocytosis Slight; Lymphocytes % (manual) 38 (10.0-50.0); Monocytes % (manual) 4 (0-12); Platelet Estimate Decreased; Reactive Lymphocytes 3
[2024-02-26 09:02] LABS: Macrocytosis Slight
[2024-02-26 09:21] LABS: Alanine Aminotransferase 30 U/L (7-40); Albumin 3.3 g/dL (3.2-4.8); Alkaline Phosphatase 39 U/L (46-116); Anion Gap 13 (5-15); Aspartate Aminotransferase 38 U/L (13-40); BUN/Creatinine Ratio 20.8 (10.0-20.0); Blood Urea Nitrogen 33 mg/dL (9-23); Carbon Dioxide 25 mmol/L (20-30); Chloride 95 mmol/L (98-107); Glucose 116 mg/dL (74-106); Potassium 4.4 mmol/L (3.5-5.1); Sodium 133 mmol/L (136-145)
[2024-02-26 09:22] LABS: Bilirubin, Total 0.7 mg/dL (0.2-1.0); Total Protein 11.6 g/dL (5.7-8.2)
[2024-02-26 09:26] LABS: Calcium 17.3 mg/dL (8.7-10.4)
[2024-02-26] MEDS: PANTOPRAZOLE 40 MG/10 ML VIAL INJ IV SCH (10:45)
[2024-02-26] MEDS ORDERED: cefTRIAXone 1GM/50ML D5W 50 ML IV SCH (22:00)
[2024-02-26] MEDS: SUCRALFATE 1 GM TAB PO SCH (22:23)
[2024-02-27] VITALS (7 sets, daily range): BP systolic 119–135; BP diastolic 69–78; PULSE 52–72; RESP 15–18; TEMP 97.8–98.9; O2SAT 96–99
[2024-02-28] VITALS (8 sets, daily range): BP systolic 111–133; BP diastolic 74–86; PULSE 66–122; RESP 15–20; TEMP 98.2–98.7; O2SAT 93–99
[2024-02-28 12:08] LABS: Basophils # (auto) 0 10 ^3/uL (0-0.2); Eosinophils # (auto) 0 10 ^3/uL (0-0.8); Eosinophils % (auto) 0.2 % (0.0-7.0); Monocytes # (auto) 0.3 10 ^3/uL (0-1.3); Nucleated Red Blood Cells % 0.9 %; Platelet Count (auto) 109 10^3/uL (140-450)
[2024-02-28 12:10] LABS: Basophils % (auto) 0.2 % (0.0-2.0); Hematocrit 26.5 % (41.0-53.0); Hemoglobin 9.4 g/dL (13.5-17.5); Lymphocytes # (auto) 1.5 10 ^3/uL (0.4-5.4); Lymphocytes % (auto) 38.9 % (10.0-50.0); Mean Corpuscular Hemoglobin 35.4 pg (28.0-32.0); Mean Corpuscular Hgb Conc. 35.6 g/dL (32.0-36.0); Mean Corpuscular Volume 99.5 fL (80.0-100.0); Monocytes % (auto) 7.8 % (0.0-12.0); Neutrophils % (auto) 52.9 % (37.0-80.0); Red Blood Cells 2.66 10^6/uL (4.5-5.90); Red Cell Distribution Width 19.6 % (11.8-14.3); White Blood Cell 3.8 10^3/uL (4.4-10.8)
[2024-02-28 12:17] LABS: Chloride 96 mmol/L (98-107); Potassium 3.8 mmol/L (3.5-5.1); Sodium 130 mmol/L (136-145)
[2024-02-28 12:18] LABS: Anion Gap 9 (5-15); Carbon Dioxide 25 mmol/L (20-30)
[2024-02-28 12:23] LABS: BUN/Creatinine Ratio 21.7 (10.0-20.0); Blood Urea Nitrogen 31 mg/dL (9-23); Glucose 93 mg/dL (74-106)
[2024-02-28 12:32] LABS: Calcium 13.4 mg/dL (8.7-10.4)
[2024-02-28] MEDS: Glucerna Carbsteady SHAKE Vanilla 8oz PO SCH (12:35)
[2024-02-29] VITALS (7 sets, daily range): BP systolic 98–147; BP diastolic 62–90; PULSE 88–109; RESP 16–22; TEMP 98.1–99.3; O2SAT 93–99
[2024-02-29] MEDS: SODIUM CHLORIDE 0.9% 1,000 ML IV SCH (18:56)
[2024-02-29] MEDS: ZOLEDRONIC ACID 4 MG in SODIUM CHL 0.9% 100 ML IV ONE (20:02)
[2024-03-01] VITALS (7 sets, daily range): BP systolic 120–141; BP diastolic 63–98; PULSE 75–97; RESP 18–22; TEMP 97.9–99; O2SAT 93–99
[2024-03-01 10:10] LABS: Hemoglobin 8.8 g/dL (13.5-17.5); Mean Corpuscular Hemoglobin 34.6 pg (28.0-32.0); Mean Corpuscular Hgb Conc. 34.8 g/dL (32.0-36.0); White Blood Cell 4.7 10^3/uL (4.4-10.8)
[2024-03-01 10:12] LABS: Hematocrit 25.3 % (41.0-53.0); Mean Corpuscular Volume 99.5 fL (80.0-100.0); Platelet Count (auto) 82 10^3/uL (140-450); Red Blood Cells 2.54 10^6/uL (4.5-5.90); Red Cell Distribution Width 19.7 % (11.8-14.3)
[2024-03-01 10:15] LABS: Band Neutrophils % (manual) 0; Basophils % (manual) 0 (0.0-2.0); Blast Cells 0; Eosinophils % (manual) 0 (0-7); Metamyelocytes % 0; Myelocytes % 0; Promyelocytes % 0; Reactive Lymphocytes 0
[2024-03-01 10:38] LABS: Lymphocytes % (manual) 47 (10.0-50.0); Monocytes % (manual) 1 (0-12); Platelet Estimate Decreased
[2024-03-01 10:41] LABS: Alanine Aminotransferase 34 U/L (7-40); Albumin 3.2 g/dL (3.2-4.8); Alkaline Phosphatase 43 U/L (46-116); Anion Gap 12 (5-15); Aspartate Aminotransferase 25 U/L (13-40); BUN/Creatinine Ratio 18.5 (10.0-20.0); Bilirubin, Total 0.5 mg/dL (0.2-1.0); Blood Urea Nitrogen 32 mg/dL (9-23); Carbon Dioxide 28 mmol/L (20-30); Chloride 95 mmol/L (98-107); Glucose 105 mg/dL (74-106); Potassium 3.9 mmol/L (3.5-5.1)
[2024-03-01 11:41] LABS: Sodium 135 mmol/L (136-145)
[2024-03-01 11:43] LABS: Calcium 18.8 mg/dL (8.7-10.4)
[2024-03-01] MEDS: CALCITONIN 400unit/2ml Vial (200unit/ml) SC ONE (15:55)
[2024-03-02] VITALS (9 sets, daily range): BP systolic 123–138; BP diastolic 74–92; PULSE 80–96; RESP 18–22; TEMP 97–98.3; O2SAT 91–100
[2024-03-02 08:13] LABS: Alanine Aminotransferase 29 U/L (7-40); Albumin 3.2 g/dL (3.2-4.8); Alkaline Phosphatase 39 U/L (46-116); Anion Gap 12 (5-15); Aspartate Aminotransferase 22 U/L (13-40); BUN/Creatinine Ratio 18.7 (10.0-20.0); Bilirubin, Total 0.4 mg/dL (0.2-1.0); Blood Urea Nitrogen 36 mg/dL (9-23); Carbon Dioxide 28 mmol/L (20-30); Chloride 94 mmol/L (98-107); Glucose 93 mg/dL (74-106); Potassium 3.8 mmol/L (3.5-5.1); Sodium 134 mmol/L (136-145); Total Protein 10.6 g/dL (5.7-8.2)
[2024-03-02 08:18] LABS: Calcium 14.9 mg/dL (8.7-10.4)
[2024-03-02] MEDS: SODIUM CHLORIDE 0.9% 1,000 ML IV SCH (08:30)
[2024-03-02 10:03] LABS: Hematocrit 22.3 % (41.0-53.0); Hemoglobin 7.9 g/dL (13.5-17.5); Mean Corpuscular Hemoglobin 35.1 pg (28.0-32.0); Mean Corpuscular Hgb Conc. 35.4 g/dL (32.0-36.0); Mean Corpuscular Volume 99.1 fL (80.0-100.0); Red Blood Cells 2.25 10^6/uL (4.5-5.90); Red Cell Distribution Width 19.4 % (11.8-14.3); White Blood Cell 4.8 10^3/uL (4.4-10.8)
[2024-03-02 10:08] LABS: Platelet Count (auto) 81 10^3/uL (140-450)
[2024-03-02 10:09] LABS: Basophils % (manual) 0 (0.0-2.0); Blast Cells 0; Eosinophils % (manual) 0 (0-7); Metamyelocytes % 0; Myelocytes % 0; Promyelocytes % 0
[2024-03-02] MEDS: CALCITONIN 400unit/2ml Vial (200unit/ml) SC ONE (10:19)
[2024-03-02] MEDS ORDERED: LORazepam 2MG/ML-1ML VIAL IV PRN (10:30)
[2024-03-02] MEDS: LORazepam 2MG/ML-1ML VIAL IV ONE (10:48)
[2024-03-02 11:15] LABS: Triglycerides 38 mg/dL (< 150)
[2024-03-02 11:16] LABS: LDL Cholesterol 10 mg/dL (< 100)
[2024-03-02 11:18] LABS: Cholesterol < 50.0 mg/dL (< 200); HDL Cholesterol 16 mg/dL (40-59)
[2024-03-02 11:29] LABS: INR 1.25 (0.9-1.15); Partial Thromboplastin Time 33.8 SEC (24.5-34.5)
[2024-03-02 12:48] LABS: Band Neutrophils % (manual) 5; Lymphocytes % (manual) 27 (10.0-50.0); Monocytes % (manual) 5 (0-12); Platelet Estimate Decreased; Reactive Lymphocytes 2
[2024-03-02] MEDS: FUROSEMIDE 40 MG/4 ML VIAL IV ONE (18:15)
[2024-03-02] MEDS ORDERED: CLINIMIX PER PHARMACY 0 ML IV SCH (22:15)
[2024-03-03] VITALS (7 sets, daily range): BP systolic 109–138; BP diastolic 71–92; PULSE 74–97; RESP 14–18; TEMP 96.9–98.1; O2SAT 95–100
[2024-03-03] MEDS: AMINO ACID INFUSION IN D10W 1,000 ML IV SCH (00:10)
[2024-03-03 02:58] LABS: Urine Bacteria None Seen /hpf (None Seen)
[2024-03-03 03:25] LABS: Protein, Urine 68.6 mg/dL (0.0-11.9)
[2024-03-03 03:28] LABS: Creatinine, Urine 39.44 mg/dL (30.0-125.0); Urine Protein/Creatinine Ratio 1.74
[2024-03-03 03:38] LABS: Urine Blood TRACE /uL (Negative); Urine Clarity Clear (Clear); Urine Color Colorless (Yellow); Urine Protein, UAD TRACE (Negative); Urine Urobilinogen Normal (Negative); Urine WBC 3 /hpf (0 - 3); Urine pH 6.5 (5.0-9.0)
[2024-03-03 06:21] LABS: Alanine Aminotransferase 23 U/L (7-40); Albumin 3.1 g/dL (3.2-4.8); Alkaline Phosphatase 39 U/L (46-116); Anion Gap 13 (5-15); Aspartate Aminotransferase 23 U/L (13-40); BUN/Creatinine Ratio 19.9 (10.0-20.0); Bilirubin, Total 0.4 mg/dL (0.2-1.0); Blood Urea Nitrogen 39 mg/dL (9-23); Carbon Dioxide 26 mmol/L (20-30); Chloride 95 mmol/L (98-107); Glucose 99 mg/dL (74-106); Magnesium 1.3 mg/dL (1.6-2.6); Potassium 3.4 mmol/L (3.5-5.1); Sodium 134 mmol/L (136-145); Total Protein 10.8 g/dL (5.7-8.2)
[2024-03-03 06:30] LABS: Calcium 13.4 mg/dL (8.7-10.4)
[2024-03-03] MEDS ORDERED: DEXTROSE (50%) 50ML SYRG IV SCH (10:00)
[2024-03-03] MEDS: InsuLIN REG 1unit/0.01ml Soln (100units/ml) SC SCH (12:00)
[2024-03-03] MEDS: MAGNESIUM SULFATE 1GM/100ML 100 ML IV SCH ×2 (13:52→22:16)
[2024-03-03] MEDS: ACCU-CHEK COMFORT CURVE STRIP VI SCH (13:56)
[2024-03-03] MEDS: CALCITONIN 400unit/2ml Vial (200unit/ml) SC ONE (17:03)
[2024-03-03] MEDS: Glucerna Carbsteady SHAKE Vanilla 8oz PO SCH (18:00)
[2024-03-04] VITALS (7 sets, daily range): BP systolic 116–145; BP diastolic 71–100; PULSE 78–96; RESP 18–20; TEMP 97.5–98.5; O2SAT 95–99
[2024-03-04] MEDS: POTASSIUM CHL 20MEQ/100ML 100 ML IV SCH (01:29)
[2024-03-04 07:44] LABS: Alanine Aminotransferase 28 U/L (7-40); Alkaline Phosphatase 41 U/L (46-116); Anion Gap 13 (5-15); Blood Urea Nitrogen 31 mg/dL (9-23); Calcium 12.2 mg/dL (8.7-10.4); Carbon Dioxide 24 mmol/L (20-30); Chloride 96 mmol/L (98-107); Glucose 94 mg/dL (74-106); Potassium 3.7 mmol/L (3.5-5.1); Sodium 133 mmol/L (136-145)
[2024-03-04 07:45] LABS: Albumin 3.2 g/dL (3.2-4.8); Aspartate Aminotransferase 26 U/L (13-40)
[2024-03-04 07:46] LABS: Bilirubin, Total 0.3 mg/dL (0.2-1.0); Total Protein 10.7 g/dL (5.7-8.2)
[2024-03-04 11:14] LABS: Basophils # (auto) 0 10 ^3/uL (0-0.2); Eosinophils # (auto) 0 10 ^3/uL (0-0.8); Eosinophils % (auto) 0.3 % (0.0-7.0); Lymphocytes % (auto) 26.1 % (10.0-50.0); Red Blood Cells 2.37 10^6/uL (4.5-5.90)
[2024-03-04 11:16] LABS: Basophils % (auto) 0.3 % (0.0-2.0); Hematocrit 24.2 % (41.0-53.0); Hemoglobin 8.5 g/dL (13.5-17.5); Lymphocytes # (auto) 1.4 10 ^3/uL (0.4-5.4); Mean Corpuscular Hemoglobin 35.8 pg (28.0-32.0); Mean Corpuscular Hgb Conc. 35.2 g/dL (32.0-36.0); Mean Corpuscular Volume 101.8 fL (80.0-100.0); Monocytes # (auto) 0.4 10 ^3/uL (0-1.3); Monocytes % (auto) 8.1 % (0.0-12.0); Neutrophils # (auto) 3.6 10 ^3/uL (1.6-8.6); Neutrophils % (auto) 65.2 % (37.0-80.0); Nucleated Red Blood Cells % 0.7 %; Red Cell Distribution Width 19.9 % (11.8-14.3); White Blood Cell 5.5 10^3/uL (4.4-10.8)
[2024-03-04 11:23] LABS: Platelet Count (auto) 90 10^3/uL (140-450)
== END 2024-03-04 20:36 | disposition home health service (06) | DRG 840 ==
LOC: EDBD 12:10 → ER 12:10 → TELE 22:40 → TELE-CENTR 02-26 03:22
PROVIDERS: ADMIT Nurse Practitioner Family; ATTEND Nurse Practitioner
PROC: 30233N1 Transfusion of Nonautologous Red Blood Cells into Peripheral Vein, Percutaneous Approach (ICD-10-PCS; principal; 2024-02-26)
DX: C90.00 Multiple myeloma not having achieved remission (principal); N17.0 Acute kidney failure with tubular necrosis; E87.1 Hypo-osmolality and hyponatremia; D61.818 Other pancytopenia; G40.909 Epilepsy, unspecified, not intractable, without status epilepticus; D69.6 Thrombocytopenia, unspecified; E83.52 Hypercalcemia; K29.70 Gastritis, unspecified, without bleeding; H02.402 Unspecified ptosis of left eyelid; N40.0 Benign prostatic hyperplasia without lower urinary tract symptoms; E11.22 Type 2 diabetes mellitus with diabetic chronic kidney disease; N18.9 Chronic kidney disease, unspecified; I12.9 Hypertensive chronic kidney disease with stage 1 through stage 4 chronic kidney disease, or unspecified chronic kidney disease; I49.3 Ventricular premature depolarization; E03.9 Hypothyroidism, unspecified; E78.5 Hyperlipidemia, unspecified; F09 Unspecified mental disorder due to known physiological condition; Z86.73 Personal history of transient ischemic attack (TIA), and cerebral infarction without residual deficits; Z88.5 Allergy status to narcotic agent; Z79.899 Other long term (current) drug therapy; Z79.82 Long term (current) use of aspirin; Z79.84 Long term (current) use of oral hypoglycemic drugs; Z87.891 Personal history of nicotine dependence; Z83.3 Family history of diabetes mellitus; Z82.3 Family history of stroke; Z82.49 Family history of ischemic heart disease and other diseases of the circulatory system
CPT/HCPCS: 36415; 70450; 70551; 71045; 76775; 80048; 80053; 80061; 81001; 82270; 82570; 82962; 83735; 83970; 84100; 84156; 85007; 85025; 85027; 85610; 85730; 86850; 86900; 86901; 86922; 87081; 92610; 93005; 93306; 95819; 96365; 96372; 96375; 97110; 97116; 97163; 97530; G0378; J2405; J2470; J3480; J3489

== ENCOUNTER 2024-05-06 18:35 | Inpatient (IN) | payer OTHER ==
[~2024-05-06] VITALS: Ht 175.3 cm; Wt 68.8 kg
[~2024-05-06 18:35] MED LIST changes: +ASPI-543 PO; -FER325T PO; +FERR325T24 PO; -OLAN20TA PO; -PAROXETINE PO
[2024-05-06 19:05] VITALS: PULSE 85; RESP 18; O2SAT 99
[2024-05-06 20:00] LABS: Chloride 103 mmol/L (98-107); Potassium 3.9 mmol/L (3.5-5.1); Sodium 141 mmol/L (136-145)
[2024-05-06 20:01] LABS: Anion Gap 14 (5-15); Calcium 9.1 mg/dL (8.7-10.4); Carbon Dioxide 24 mmol/L (20-31)
[2024-05-06 20:04] LABS: Hematocrit 13.8 % (41.0-53.0); Mean Corpuscular Hemoglobin 37.1 pg (28.0-32.0); Mean Corpuscular Volume 105.7 fL (80.0-100.0); Platelet Count (auto) 97 10^3/uL (140-450); Red Blood Cells 1.31 10^6/uL (4.5-5.90); Red Cell Distribution Width 25.2 % (11.8-14.3); White Blood Cell 3.4 10^3/uL (4.4-10.8)
[2024-05-06 20:06] LABS: BUN/Creatinine Ratio 15.7 (10.0-20.0); Blood Urea Nitrogen 17 mg/dL (9-23); Glucose 85 mg/dL (74-106)
[2024-05-06 20:10] LABS: Band Neutrophils % (manual) 0; Basophils % (manual) 0 (0.0-2.0); Blast Cells 0; Eosinophils % (manual) 0 (0-7); Hemoglobin 4.8 g/dL (13.5-17.5); Metamyelocytes % 0; Myelocytes % 0; Promyelocytes % 0; Reactive Lymphocytes 0
[2024-05-06 21:31] LABS: Lymphocytes % (manual) 55 (10.0-50.0); Monocytes % (manual) 3 (0-12)
[2024-05-06 21:32] LABS: Anisocytosis Moderate; Platelet Estimate Decreased
[2024-05-06 21:33] LABS: Rouleau Present; Stomatocytes Few
[2024-05-07] VITALS (15 sets, daily range): BP systolic 89–123; BP diastolic 56–85; PULSE 65–95; RESP 15–22; TEMP 98–98.9; O2SAT 93–100
--- NOTE | 2024-05-07 01:56 | ED.PDOC ---
History of Present Illness HPI Comments This patient is a pleasant 53-year-old male who arrives to the ED with his for evaluation of abnormal labs. Patient is suffering from multiple myeloma and has bouts of critical anemia. Patient and states that he arrives due to his lab results of the hemoglobin near five. Patient denies any fever nausea or vomiting. requests if he can just receive a transfusion and go home. I told her that we would accommodate them. Chief Complaint: Abnormal LAB's Time Seen by MD: 18:37 Primary Care Provider: UNKNOWN NAME Reviewed Notes: Nurses Notes Allergies: Coded Allergies: Morphine (Verified Allergy, Mild, 06/24/10) Home Meds Active Scripts Sucralfate (CARAFATE) 1 Gm Tab, 1 GM OR QIDACHS for 30 Days, #120 TAB Prov:GOGO MEDELLIN LEARN TO [employer]STRU[employer] 02/10/24 Naloxone HCl (Narcan) 4 Mg/0.1 Ml Spr, 4 MG NA UD for 30 Days, #1 SPRAY Prov:GOGO MEDELLIN LEARN [employer] 01/02/24 Hydrocodone-Acetaminophen (Hydrocodone Bitartrate/AC 5-325 mg) 1 Tab Tab, 1 TAB PO Q8HP PRN for 30 Days, #90 TAB Prov:GOGO MEDELLIN LEARN TO [employer] 01/02/24 Reported Medications Pantoprazole Sodium Sesquihydr (Protonix) 40 Mg Tab, 40 MG PO DAILY, #30 TAB 02/26/24 Ferrous Sulfate (Ferrous Sulfate) 325 Mg Tab, 325 MG PO TIDWM for 30 Days 02/26/24 Aspirin (Aspir-Low) 81 Mg Tab, 81 MG PO DAILY for 30 Days, MG 02/26/24 Levodopa W/Carbidopa (Carbidopa/Levodopa) 1 Tab Tab, 1 TAB PO TID 02/09/24 Trazodone Hcl (Trazodone Hcl) 100 Mg Tab, 1 TAB PO HS 02/09/24 Dexamethasone (Decadron) 4 Mg Tb, 1 TAB PO DAILY 02/09/24 Acyclovir (Acyclovir) 400 Mg Tab, 1 TAB PO BID 02/09/24 Ubtrvosjqso-Ardbfahlcvguf-Phxe (Darzalex Faspro [id number] mg-Ut/15Ml) 1 Marge Marge, SC 02/09/24 Bortezomib (Bortezomib) 3.5 Mg Inj 02/09/24 Metformin Hydrochloride (Metformin Hcl) 500 Mg Tab, 1 TAB PO BIDWM 12/29/23 Levetiracetam (Keppra) 500 Mg Tab, 1500 MG PO BID for 30 Days, MG 12/28/23 Levothyroxine Sodium (Levothyroxine Sodium) 50 Mcg Tab, 50 MCG PO QAM for 30 Days, MCG 12/28/23 Losartan Potassium (Losartan Potassium) 50 Mg Tab, 50 MG PO DAILY for 30 Days, MG 12/28/23 Escitalopram Oxalate (Lexapro) 20 Mg Tab, 1 TAB PO DAILY, #90 TAB 3 Refills 12/28/23 Atorvastatin Calcium (Lipitor) 10 Mg Tab, 1 TAB PO DAILY, #30 TAB 5 Refills 12/28/23 Carbidopa-Levodopa (Carbidopa/Levodopa Odt 10-100 mg) 1 Tab Tab, 1 TAB PO TID 12/28/23 Divalproex Sodium (Depakote) 500 Mg Tab, 1 TAB PO BID, #60 TAB 1 Refill 12/28/23 Information Source: Patient, Spouse Mode of Arrival: Ambulatory Severity: Severe Timing: Days Duration: Since onset Prehospital treatment: None Past Medical History PAST MEDICAL HISTORY: CVA, DM, Seizures, Thyroid Past Medical History (Other): Multiple myeloma Surgical History: Denies all surgeries Family History Family History: Reviewed,noncontributory to illness Social History Smoker: Non-Smoker Alcohol: Denies ETOH Use Drugs: Denies Drug Use Lives In: Home Constitutional: denies: chills, diaphoresis, fatigue, fever, malaise, sweats, weakness, others EENTM: denies: blurred vision, double vision, ear bleeding, ear discharge, ear drainage, ear pain, ear ringing, eye pain, eye redness, hearing loss, mouth pain, mouth swelling, nasal discharge, nose bleeding, nose congestion, nose pain, photophobia, tearing, throat pain, throat swelling, voice changes, others Respiratory: denies: cough, hemoptysis, orthopnea, SOB at rest, shortness of breath, SOB with excertion, stridor, wheezing, others Cardiovascular: denies: chest pain, dizzy spells, diaphoresis, Dyspnea on exertion, edema, irregular heart beat, left arm pain, lightheadedness, palpitations, PND, syncope, others Gastrointestinal: denies: abdomen distended, abdominal pain, blood streaked bowels, constipated, diarrhea, dysphagia, difficulty swallowing, hematemesis, melena, nausea, poor appetite, poor fluid intake, rectal bleeding, rectal pain, vomiting, others Genitourinary: denies: burning, dysuria, flank pain, frequency, hematuria, incontinence, penile discharge, penile sore, pain, testicle pain, testicle swelling, urgency, others Neurological: denies: dizziness, fainting, headache, left sided numbness, left sided weakness, numbness, paresthesia, pre-existing deficit, right sided numbness, right sided weakness, seizure, speech problems, tingling, tremors, weakness, others Musculoskeletal: denies: back pain, gout, joint pain, joint swelling, muscle pain, muscle stiffness, neck pain, others Integumetry: denies: bruises, change in color, change in hair/nails, dryness, laceration, lesions, lumps, rash, wounds, others Allergic/Immunocompromised: denies: Difficulty Healing, Frequent Infections, Hives, Itching, others Hematologic/Lymphatic: denies: anemia, blood clots, easy bleeding, easy bruising, swollen glands, others Endocrine: denies: excessive hunger, excessive sweating, excessive thirst, excessive urination, flushing, intolerance to cold, intolerance to heat, unexplained weight gain, unexplained weight loss, others Psychiatric: denies: anxiety, bipolar disorder, depression, hopeless, panic disorder, schizophrenia, sleepless, suicidal, others Unable to Obtain due to: Altered Mental Status Physical Exam Exam Comments Patient suffers from moderate encephalopathy due to his multiple myeloma condition. General Appearance: No Apparent Distress (Patient is in no distress at time of evaluation.), Normal HEENT: Normal ENT Inspection, Pharynx Normal, TMs Normal Neck: Full Range of Motion, Non-Tender, Normal, Normal Inspection Respiratory: Chest Non-Tender, Lungs Clear, No Accessory Muscle Use, No Respiratory Distress, Normal Breath Sounds Cardiovascular: No Edema, No JVD, No Murmur, No Gallop, Normal Peripheral Pulses, Regular Rate/Rhythm Breast Exam: Deferred Gastrointestinal: No Organomegaly, Non Tender, No Pulsatile Mass, Normal Bowel Sounds, Soft Genitalia: Deferred Pelvic: Deferred Rectal: Deferred Extremities: NOT DONE Neurologic: NOT DONE Cerebellar Function: NOT DONE Reflexes: NOT DONE Skin: Dry, Normal Color, Warm Lymphatic: No Adenopathy Was a procedure done? Was a procedure done?: No Differential Dx Considerations may include: Anemia, sepsis, electrolyte abnormality X-Ray, Labs, Meds, VS Vital Signs Date Time Temp Pulse Resp B/P (MAP) Pulse Ox O2 Delivery O2 Flow Rate FiO2 05/07/24 01:05 98.5 95 22 107/69 98.5 05/07/24 00:50 98.7 86 21 110/60 98.7 05/07/24 00:35 98.3 87 17 115/68 98.3 05/06/24 19:43 98.0 80 14 121/76 (91) 100 98.0 05/06/24 19:36 98.0 105 14 119/61 (80) 98 98.0 05/06/24 19:05 85 18 99 Room Air* 0 21 05/06/24 18:47 99.5 82 18 124/58 (80) 99 Lab Test 05/06/24 19:37 Range/Units White Blood Count 3.4 L 4.4-10.8 10^3/uL Red Blood Count 1.31 L 4.5-5.90 10^6/uL Hemoglobin 4.8 *L 13.5-17.5 g/dL Hematocrit 13.8 L 41.0-53.0 % Mean Corpuscular Volume 105.7 H 80.0-100.0 fL Mean Corpuscular Hemoglobin 37.1 H 28.0-32.0 pg Mean Corpuscular Hemoglobin Concent 35.0 32.0-36.0 g/dL Red Cell Distribution Width 25.2 H 11.8-14.3 % Platelet Count 97 L 140-450 10^3/uL Mean Platelet Volume 8.1 6.9-10.8 fL Neutrophils (%) (Auto) 37.0-80.0 % Lymphocytes (%) (Auto) 10.0-50.0 % Monocytes (%) (Auto) 0.0-12.0 % Basophils (%) (Auto) 0.0-2.0 % Neutrophils # (Auto) 1.6-8.6 10 ^3/uL Lymphocytes # (Auto) 0.4-5.4 10 ^3/uL Monocytes # (Auto) 0-1.3 10 ^3/uL Differential Total Cells Counted 100.0 100 Neutrophils % (Manual) 42 37.0-80.0 Band Neutrophils % (Manual) 0 Lymphocytes % (Manual) 55 H 10.0-50.0 Monocytes % (Manual) 3 0-12 Eosinophils % (Manual) 0 0-7 Basophils % (Manual) 0 0.0-2.0 Metamyelocytes % (manual) 0 Myelocytes % (Manual) 0 Promyelocytes % (Manual) 0 Blast Cells % (Manual) 0 Reactive Lymphocytes 0 Platelet Estimate Decreased Anisocytosis (manual) Moderate Microcytosis Moderate Stomatocytes Few Rouleaux Present Sodium Level 141 136-145 mmol/L Potassium Level 3.9 3.5-5.1 mmol/L Chloride Level 103 98-107 mmol/L Carbon Dioxide Level 24 20-31 mmol/L Anion Gap 14 5-15 Blood Urea Nitrogen 17 9-23 mg/dL Creatinine 1.08 0.700-1.30 mg/dL Glomerular Filtration Rate Calc 82 >90 mL/min BUN/Creatinine Ratio 15.7 10.0-20.0 Serum Glucose 85 74-106 mg/dL Calcium Level 9.1 8.7-10.4 mg/dL X-Ray, Labs, Meds, VS Comment All studies performed the ED were reviewed by me personally. Patient's laboratories revealed a hemoglobin of 4.8. Patient received 2 units of packed red blood cells and will be discharged home. Time of 1ST Reevaluation: 01:54 Reevaluation 1ST: Improved Consultation: PCP Patient Education/Counseling: Diagnosis, Treatment Family Education/Counseling: Diagnosis, Treatment Departure 1 Departure Time of Disposition: 01:54 Impression: Primary Impression: Severe anemia Additional Impressions: Anemia of chronic disease Multiple myeloma Disposition: 01 HOME / SELF CARE / HOMELESS Condition: Stable Additional Instructions: Advised continue follow up with primary care provider and Oncology for management of his chronic condition. Discharged With: Self, Spouse Critical Care Note Critical Care Time?: No Stability Stability form required: No Heart Score Heart Score: Heart Score Response (Comments) Value History N/A 0 EKG N/A 0 Age N/A 0 Risk Factors N/A 0 Troponin N/A 0 Total 0 TITA MURILLO PAC May 07, 2024 01:56
[2024-05-07] MEDS ORDERED: NITROGLYCERIN 0.4 MG SL TAB SL PRN (04:30)
[2024-05-07] MEDS ORDERED: HYDROcodone-ACET 5/325MG TAB PO PRN (04:30)
[2024-05-07] MEDS ORDERED: MORPHINE SULFATE INJ 2 MG/ml SYRG IV PRN (04:30)
[2024-05-07] MEDS ORDERED: DOCUSATE SOD 100 MG CAP PO PRN (04:30)
[2024-05-07] MEDS ORDERED: DEXTROSE (50%) 50ML SYRG IV PRN (04:30)
[2024-05-07] MEDS ORDERED: ONDANSETRON HCL 4 MG/2 ML VIAL IV PRN (04:30)
[2024-05-07] MEDS ORDERED: ACETAMINOPHEN 325 MG TAB PO PRN (04:30)
--- NOTE | 2024-05-07 04:34 | DVHHP2 ---
History of Present Illness Reason for Visit: Severe anemia History of Present Illness The patient is a 53-year-old male with multiple past medical history including CVA, DM, seizures, and hypertension who presented to [facility] ED for evaluation of abnormal labs. Patient is suffering from multiple myeloma and has bouts of critical anemia. Patient and states that he arrives due to his lab results of the hemoglobin near 5. Patient was seen and evaluated in the ED, laboratory data shows WBC 3.4, hemoglobin 4.8, hematocrit 13.8, platelets 90911, sodium 141, potassium 3.9, BUN 17, creatinine 1.08, glucose 85. Patient was given 2 units of PRBC, please see medication orders section in the computer. On my assessment, patient denies chest pain, no headache, no dizziness, no diaphoresis, no shortness of breaths, no nausea, no vomiting, no fever, no chills. Patient was admitted for further evaluation and medical management. Past Medical History CVA, DM, Seizures, HLD, HTN, Thyroid disease, Multiple myeloma Past Surgical History Denies all surgeries Family History Reviewed, noncontributory to the management of this case. Past Social History The patient lives at home, denies smoking, alcohol or illicit drugs abuse. Review of Systems Constitutional: Yes: Weakness; No: Fever, Chills, Sweats, Malaise, Other Eyes: No: Pain, Vision change, Conjunctivae inflammation, Eyelid inflammation, Other, Redness ENT: No: Ear pain, Ear discharge, Nose pain, Nose discharge, Nose congestion, Mouth pain, Mouth swelling, Throat pain, Throat swelling, Other Respiratory: No: Cough, Dry, Shortness of breath, SOB with excertion, Wheezing, Hemoptysis, Pleuritic Pain, Sputum, Wheezing, Other Cardiovascular: No: Chest Pain, Palpitations, Orthopnea, Paroxysmal Noc. Dyspnea, Edema, Lt Headedness, Other Gastrointestinal: No: Nausea, Vomiting, Abdominal Pain, Diarrhea, Constipation, Melena, Hematochezia, Other Genitourinary: No Dysuria, No Frequency, No Incontinence, No Hematuria, No Retention, No Other Musculoskeletal: No: other, neck pain, shoulder pain, arm pain, back pain, hand pain, leg pain, foot pain Skin: No: Rash, Lesions, Jaundice, Bruising, Other Neurological: No: Weakness, Numbness, Incoordination, Change in speech, Confusion, Seizures, Other Allergies: Coded Allergies: Morphine (Verified Allergy, Mild, 06/24/10) Exam Vital Signs Vital Signs Date Time Temp Pulse Resp B/P (MAP) Pulse Ox O2 Delivery O2 Flow Rate FiO2 05/07/24 03:50 98.9 80 20 108/63 98.9 05/06/24 19:43 100 05/06/24 19:05 Room Air* 0 21 General Appearance: Alert, Oriented X3, Cooperative, No acute distress HEENT: Atraumatic, PERRLA, EOMI, Mucous membr. moist/pink Respiratory: Clear to auscultation, Normal air movement Cardiovascular: Regular rate, Normal S1, Normal S2, No murmurs Abdominal: Normal bowel sounds, Soft, No tenderness, No hepatospenomegaly, No masses Extremities: No clubbing, No cyanosis, No edema, Normal pulses, No tend erness/swelling Skin: No rashes, No breakdown, No significant lesion Neuro: Normal speech, Normal tone, Sensation intact, Cranial nerves 3-12 NL, Reflexes 2+, Other (Generalized weakness) Psych/Mental Status: Mental status NL, Mood NL Labs/Xrays Labs Test 05/06/24 19:37 Range/Units White Blood Count 3.4 L 4.4-10.8 10^3/uL Red Blood Count 1.31 L 4.5-5.90 10^6/uL Hemoglobin 4.8 *L 13.5-17.5 g/dL Hematocrit 13.8 L 41.0-53.0 % Mean Corpuscular Volume 105.7 H 80.0-100.0 fL Mean Corpuscular Hemoglobin 37.1 H 28.0-32.0 pg Mean Corpuscular Hemoglobin Concent 35.0 32.0-36.0 g/dL Red Cell Distribution Width 25.2 H 11.8-14.3 % Platelet Count 97 L 140-450 10^3/uL Mean Platelet Volume 8.1 6.9-10.8 fL Neutrophils (%) (Auto) 37.0-80.0 % Lymphocytes (%) (Auto) 10.0-50.0 % Monocytes (%) (Auto) 0.0-12.0 % Basophils (%) (Auto) 0.0-2.0 % Neutrophils # (Auto) 1.6-8.6 10 ^3/uL Lymphocytes # (Auto) 0.4-5.4 10 ^3/uL Monocytes # (Auto) 0-1.3 10 ^3/uL Differential Total Cells Counted 100.0 100 Neutrophils % (Manual) 42 37.0-80.0 Band Neutrophils % (Manual) 0 Lymphocytes % (Manual) 55 H 10.0-50.0 Monocytes % (Manual) 3 0-12 Eosinophils % (Manual) 0 0-7 Basophils % (Manual) 0 0.0-2.0 Metamyelocytes % (manual) 0 Myelocytes % (Manual) 0 Promyelocytes % (Manual) 0 Blast Cells % (Manual) 0 Reactive Lymphocytes 0 Platelet Estimate Decreased Anisocytosis (manual) Moderate Microcytosis Moderate Stomatocytes Few Rouleaux Present Sodium Level 141 136-145 mmol/L Potassium Level 3.9 3.5-5.1 mmol/L Chloride Level 103 98-107 mmol/L Carbon Dioxide Level 24 20-31 mmol/L Anion Gap 14 5-15 Blood Urea Nitrogen 17 9-23 mg/dL Creatinine 1.08 0.700-1.30 mg/dL Glomerular Filtration Rate Calc 82 >90 mL/min BUN/Creatinine Ratio 15.7 10.0-20.0 Serum Glucose 85 74-106 mg/dL Calcium Level 9.1 8.7-10.4 mg/dL Assessment/Plan Assessment/Plan Severe anemia Anemia of chronic disease Multiple myeloma Generalized weakness Plan 1. Admit to telemetry unit 2. Breathing treatment 3. Pain control management 4. Management of fluids and electrolytes 5. Consultation for hospitalist 6. Diagnostic tests chest x-ray 7. DVT prophylaxis-on aspirin 8. Repeat labs CBC, CMP in a.m. 9. Continue with current medical management 10. Treatment plan discussed with patient and RN. Patient verbalized understanding. Plan discussed with: Patient, Spouse (At bedside), Other (RN) Problem List: (1) Severe anemia (2) Anemia of chronic disease (3) Multiple myeloma (4) Generalized weakness Date of Service: May 07, 2024 Billing Provider: NIESHA BERNABE DNP Common Visit Codes: [id number] INP/OBS CARE (HIGH) NIESHA BERNABE DNP May 07, 2024 04:34
[2024-05-07] MEDS: CARBIDOPA W LEVODOPA 10/100mg TABLET PO SCH (06:00)
[2024-05-07] MEDS: SODIUM CHLOR 0.9% PF (SALINE LOCK) 10ML VIAL/SYR IV SCH (06:00)
[2024-05-07] MEDS: LEVOTHYROXINE SODIUM 50 MCG TAB PO SCH (06:00)
[2024-05-07 06:53] LABS: Alanine Aminotransferase 11 U/L (7-40); Albumin 2.9 g/dL (3.2-4.8); Alkaline Phosphatase 56 U/L (46-116); Anion Gap 14 (5-15); Aspartate Aminotransferase 19 U/L (13-40); BUN/Creatinine Ratio 17.7 (10.0-20.0); Bilirubin, Total 0.2 mg/dL (0.2-1.0); Blood Urea Nitrogen 17 mg/dL (9-23); Calcium 8.9 mg/dL (8.7-10.4); Carbon Dioxide 23 mmol/L (20-31); Chloride 104 mmol/L (98-107); Glucose 92 mg/dL (74-106); Potassium 4.1 mmol/L (3.5-5.1); Sodium 141 mmol/L (136-145); Total Protein 9.9 g/dL (5.7-8.2)
[2024-05-07] MEDS: ACCU-CHEK COMFORT CURVE STRIP VI SCH (06:56)
[2024-05-07] MEDS: InsuLIN REG 1unit/0.01ml Soln (100units/ml) SC SCH (06:56)
[2024-05-07] MEDS: levETIRAcetam 500 mg/100ml 100 ML IV SCH (10:35)
[2024-05-07] MEDS: ASPirin 81 mg TAB PO SCH (10:35)
[2024-05-07 10:51] LABS: Mean Corpuscular Hemoglobin 35.4 pg (28.0-32.0); Mean Corpuscular Hgb Conc. 36.1 g/dL (32.0-36.0); Mean Corpuscular Volume 98.1 fL (80.0-100.0); Platelet Count (auto) 99 10^3/uL (140-450); Red Blood Cells 1.83 10^6/uL (4.5-5.90)
[2024-05-07 10:54] LABS: Hemoglobin 6.5 g/dL (13.5-17.5); Red Cell Distribution Width 23.7 % (11.8-14.3)
[2024-05-07 10:56] LABS: Basophils % (manual) 0 (0.0-2.0); Blast Cells 0; Metamyelocytes % 0; Myelocytes % 0; Promyelocytes % 0
[2024-05-07 11:09] LABS: Anisocytosis Moderate; Band Neutrophils % (manual) 1; Eosinophils % (manual) 1 (0-7); Lymphocytes % (manual) 41 (10.0-50.0); Monocytes % (manual) 9 (0-12); Platelet Estimate Decreased; Polychromasia Slight; Reactive Lymphocytes 2
[2024-05-07 11:10] LABS: Rouleau Present
[2024-05-07] MEDS: DEXTROSE (50%) 50ML SYRG IV ONE (11:46)
--- NOTE | 2024-05-07 13:02 | DVHPN2 ---
Reviewed: Care Plan, H&P, Labs, Medications, Previous Orders, Radiology Changes from previous H/P or p: No Changes Eyes: No Pain, No Vision change, No Conjunctivae inflammation, No Eyelid inflammation, No Other, No Redness ENT: No Ear pain, No Ear discharge, No Nose pain, No Nose discharge, No Nose congestion, No Mouth pain, No Mouth swelling, No Throat pain, No Throat swelling, No Other Cardiovascular: No Chest Pain, No Palpitations, No Orthopnea, No Paroxysmal Noc. Dyspnea, No Edema, No Lt Headedness, No Other Respiratory: No Cough, No Dry, No Shortness of breath, No SOB with excertion, No Wheezing, No Hemoptysis, No Pleuritic Pain, No Sputum, No Other Gastrointestinal: No Nausea, No Vomiting, No Abdominal Pain, No Diarrhea, No Constipation, No Melena, No Hematochezia, No Other Genitourinary: No Dysuria, No Frequency, No Incontinence, No Hematuria, No Retention, No Other Musculoskeletal: No other, No neck pain, No shoulder pain, No arm pain, No back pain, No hand pain, No leg pain, No foot pain Skin: No Rash, No Lesions, No Jaundice, No Bruising, No Other Objective Vitals Vital Signs Date Time Temp Pulse Resp B/P (MAP) Pulse Ox O2 Delivery O2 Flow Rate FiO2 05/07/24 12:00 77 16 113/77 (89) 96 05/07/24 08:00 Room Air* 0 21 05/07/24 08:00 98.2 98.2 Intake/Output Intake and Output 05/07/24 07:00 Intake Total 1500 ml Output Total 0 ml Balance 1500 ml Intake Oral 0 ml Blood Product 1200 ml Other 300 ml Output Urine Total 0 ml Medications Current Medications Medications Dose Ordered Sig/Patito Route Start Time Stop Time Status Last Admin Dose Admin Levothyroxine Sodium 50 mcg QAM@0600 PO 05/07/24 06:00 Levetiracetam 100 ml @ 400 mls/hr BID IV 05/07/24 10:00 05/07/24 10:35 400 MLS/HR Carbidopa/Levodopa 1 tab TID PO 05/07/24 06:00 Aspirin 81 mg DAILY PO 05/07/24 10:00 05/07/24 10:35 81 MG Atorvastatin Calcium 10 mg HS PO 05/07/24 22:00 Diagnostic Test (Pha) 1 strip ACHS 05/07/24 07:00 05/07/24 11:45 1 STRIP Insulin Human Regular ACHS SC 05/07/24 07:00 Dextrose 50 ml UD PRN IV 05/07/24 04:30 Sodium Chloride 10 ml Q8HR IV 05/07/24 06:00 Acetaminophen/ Hydrocodone Bitart 1 tab Q4HP PRN PO 05/07/24 04:30 Ondansetron HCl 4 mg Q4HP PRN IV 05/07/24 04:30 Docusate Sodium 100 mg BIDPRN PRN PO 05/07/24 04:30 Acetaminophen 650 mg Q6HP PRN PO 05/07/24 04:30 Nitroglycerin 0.4 mg Q5MINP PRN SL 05/07/24 04:30 Morphine Sulfate 2 mg Q30M PRN IV 05/07/24 04:30 Hold Laboratory Results Laboratory Tests 05/07/24 04:49 05/07/24 10:00 Chemistry Test 05/06/24 19:37 05/07/24 04:49 Calcium Level 9.1 mg/dL (8.7-10.4) 8.9 mg/dL (8.7-10.4) Albumin 2.9 g/dL (3.2-4.8) L Total Protein 9.9 g/dL (5.7-8.2) H LFT Test 05/07/24 04:49 Alanine Aminotransferase (ALT) 11 U/L (7-40) Alkaline Phosphatase 56 U/L (46-116) Aspartate Amino Transferase (AST) 19 U/L (13-40) Total Bilirubin 0.2 mg/dL (0.2-1.0) Labs and/or images reviewed: Labs reviewed by me, Image(s) reviewed by me Assessment/Plan Assessment/Plan Severe Symptomatic anemia hemoglobin 4.8 status post 2 units RBC transfusion improved to 6.5, we will transfuse one more unit Chronic multiple myeloma: Consult for Dr. Escobar History of recurrent blood transfusions History of CVA Diabetes Seizures Hypercholesterolemia Hypertension Hypothyroidism Condition guarded Time spent 65 minutes Patient is full code Advanced care planning time 25 minutes Plan discussed with: Patient My Orders Orders - HERRERA POLANCO MD Procedure Category Date Status Time Packedcell-Noactive BBK 05/07/24 Logged Bleeding 11:37 Date of Service: May 07, 2024 Billing Provider: HERRERA POLANCO MD Common Visit Codes: [id number] CARE 30-74 MIN HERRERA POLANCO MD May 07, 2024 13:02
[2024-05-07 19:54] LABS: Basophils # (auto) 0 10 ^3/uL (0-0.2); Basophils % (auto) 0.1 % (0.0-2.0); Eosinophils # (auto) 0 10 ^3/uL (0-0.8); Eosinophils % (auto) 0.1 % (0.0-7.0); Hematocrit 18.3 % (41.0-53.0); Lymphocytes # (auto) 1.8 10 ^3/uL (0.4-5.4); Lymphocytes % (auto) 49.6 % (10.0-50.0); Mean Corpuscular Hemoglobin 34.3 pg (28.0-32.0); Mean Corpuscular Volume 97.9 fL (80.0-100.0); Monocytes # (auto) 0.3 10 ^3/uL (0-1.3); Monocytes % (auto) 8.4 % (0.0-12.0); Neutrophils # (auto) 1.5 10 ^3/uL (1.6-8.6); Neutrophils % (auto) 41.8 % (37.0-80.0); Nucleated Red Blood Cells % 0.8 %; Platelet Count (auto) 85 10^3/uL (140-450); Red Blood Cells 1.87 10^6/uL (4.5-5.90); White Blood Cell 3.6 10^3/uL (4.4-10.8)
[2024-05-07 19:55] LABS: Red Cell Distribution Width 23.6 % (11.8-14.3)
[2024-05-07 19:56] LABS: Hemoglobin 6.4 g/dL (13.5-17.5)
[2024-05-07] MEDS: ATORVASTATIN 20 MG TAB PO SCH (21:49)
[2024-05-08] VITALS (13 sets, daily range): BP systolic 107–122; BP diastolic 72–81; PULSE 64–84; RESP 16–19; TEMP 98–98.9; O2SAT 93–97
[2024-05-08] MEDS: INFLUENZA TRIVALENT 2024-2025 0.5 ML INJ IM ONE (01:45)
[2024-05-08 07:04] LABS: Hemoglobin 7.1 g/dL (13.5-17.5); Red Blood Cells 2.03 10^6/uL (4.5-5.90); White Blood Cell 3.2 10^3/uL (4.4-10.8)
[2024-05-08 07:07] LABS: Hematocrit 19.9 % (41.0-53.0); Mean Corpuscular Hemoglobin 34.8 pg (28.0-32.0); Mean Corpuscular Hgb Conc. 35.4 g/dL (32.0-36.0); Mean Corpuscular Volume 98.4 fL (80.0-100.0); Platelet Count (auto) 86 10^3/uL (140-450)
[2024-05-08 07:16] LABS: Red Cell Distribution Width 23.8 % (11.8-14.3)
[2024-05-08 07:17] LABS: Basophils % (manual) 0 (0.0-2.0); Blast Cells 0; Eosinophils % (manual) 0 (0-7); Metamyelocytes % 0; Myelocytes % 0; Promyelocytes % 0
[2024-05-08 07:24] LABS: Albumin 2.8 g/dL (3.2-4.8); Alkaline Phosphatase 44 U/L (46-116); Anion Gap 13 (5-15); Aspartate Aminotransferase 22 U/L (13-40); BUN/Creatinine Ratio 19.8 (10.0-20.0); Blood Urea Nitrogen 18 mg/dL (9-23); Calcium 9.5 mg/dL (8.7-10.4); Carbon Dioxide 20 mmol/L (20-31); Chloride 103 mmol/L (98-107); Glucose 78 mg/dL (74-106); Potassium 4.5 mmol/L (3.5-5.1); Sodium 136 mmol/L (136-145)
[2024-05-08 07:25] LABS: Bilirubin, Total 0.5 mg/dL (0.2-1.0); Total Protein 10.1 g/dL (5.7-8.2)
[2024-05-08 07:27] LABS: Alanine Aminotransferase < 9 U/L (7-40)
[2024-05-08 07:49] LABS: Band Neutrophils % (manual) 1; Lymphocytes % (manual) 52 (10.0-50.0); Monocytes % (manual) 7 (0-12); Reactive Lymphocytes 2
[2024-05-08 07:50] LABS: Anisocytosis Moderate; Platelet Estimate Decreased; Polychromasia Slight; Rouleau Present
--- NOTE | 2024-05-08 08:44 | DVHPN2 ---
Reviewed: Care Plan, H&P, Labs, Medications, Previous Orders, Radiology Changes from previous H/P or p: No Changes Eyes: No Pain, No Vision change, No Conjunctivae inflammation, No Eyelid inflammation, No Other, No Redness ENT: No Ear pain, No Ear discharge, No Nose pain, No Nose discharge, No Nose congestion, No Mouth pain, No Mouth swelling, No Throat pain, No Throat swelling, No Other Cardiovascular: No Chest Pain, No Palpitations, No Orthopnea, No Paroxysmal Noc. Dyspnea, No Edema, No Lt Headedness, No Other Respiratory: No Cough, No Dry, No Shortness of breath, No SOB with excertion, No Wheezing, No Hemoptysis, No Pleuritic Pain, No Sputum, No Other Gastrointestinal: No Nausea, No Vomiting, No Abdominal Pain, No Diarrhea, No Constipation, No Melena, No Hematochezia, No Other Genitourinary: No Dysuria, No Frequency, No Incontinence, No Hematuria, No Retention, No Other Musculoskeletal: No other, No neck pain, No shoulder pain, No arm pain, No back pain, No hand pain, No leg pain, No foot pain Skin: No Rash, No Lesions, No Jaundice, No Bruising, No Other Objective Vitals Vital Signs Date Time Temp Pulse Resp B/P (MAP) Pulse Ox O2 Delivery O2 Flow Rate FiO2 05/08/24 05:00 98.2 64 19 109/76 (87) 97 98.2 05/08/24 00:15 Room Air* 0 21 Intake/Output Intake and Output 05/08/24 07:00 Intake Total 1100 ml Output Total 290 ml Balance 810 ml IV Total 200 ml Blood Product 300 ml Other 600 ml Output Urine Total 290 ml # Voids 6 Medications Current Medications Medications Dose Ordered Sig/Patito Route Start Time Stop Time Status Last Admin Dose Admin Levothyroxine Sodium 50 mcg QAM@0600 PO 05/07/24 06:00 05/08/24 06:06 50 MCG Levetiracetam 100 ml @ 400 mls/hr BID IV 05/07/24 10:00 05/07/24 21:49 400 MLS/HR Carbidopa/Levodopa 1 tab TID PO 05/07/24 06:00 05/08/24 06:06 1 TAB Aspirin 81 mg DAILY PO 05/07/24 10:00 05/07/24 10:35 81 MG Atorvastatin Calcium 10 mg HS PO 05/07/24 22:00 05/07/24 21:49 10 MG Diagnostic Test (Pha) 1 strip ACHS 05/07/24 07:00 05/08/24 06:11 1 STRIP Insulin Human Regular ACHS SC 05/07/24 07:00 Dextrose 50 ml UD PRN IV 05/07/24 04:30 Sodium Chloride 10 ml Q8HR IV 05/07/24 06:00 05/08/24 06:06 10 ML Acetaminophen/ Hydrocodone Bitart 1 tab Q4HP PRN PO 05/07/24 04:30 Ondansetron HCl 4 mg Q4HP PRN IV 05/07/24 04:30 Docusate Sodium 100 mg BIDPRN PRN PO 05/07/24 04:30 Acetaminophen 650 mg Q6HP PRN PO 05/07/24 04:30 Nitroglycerin 0.4 mg Q5MINP PRN SL 05/07/24 04:30 Morphine Sulfate 2 mg Q30M PRN IV 05/07/24 04:30 Hold Laboratory Results Laboratory Tests 05/08/24 06:18 Chemistry Test 05/08/24 06:18 Albumin 2.8 g/dL (3.2-4.8) L Calcium Level 9.5 mg/dL (8.7-10.4) Total Protein 10.1 g/dL (5.7-8.2) H LFT Test 05/08/24 06:18 Alanine Aminotransferase (ALT) < 9 U/L (7-40) Alkaline Phosphatase 44 U/L (46-116) L Aspartate Amino Transferase (AST) 22 U/L (13-40) Total Bilirubin 0.5 mg/dL (0.2-1.0) Labs and/or images reviewed: Labs reviewed by me, Image(s) reviewed by me Assessment/Plan Assessment/Plan Severe Symptomatic anemia hemoglobin 4.8 status post 3 units RBC transfusion improved to 7.1, Chronic multiple myeloma: Consult for Dr. Escobar History of recurrent blood transfusions History of CVA Diabetes Seizures Hypercholesterolemia Hypertension Hypothyroidism Condition guarded Time spent 45 minutes Patient is full code Plan discussed with: Patient My Orders Orders - HERRERA POLANCO MD Procedure Category Date Status Time * Hematology/Oncology CONS 05/07/24 Transmitted Consult 13:02 * Card Setter CONS 05/08/24 Transmitted Consult Date of Service: May 08, 2024 Billing Provider: HERRERA POLANCO MD Common Visit Codes: [id number] INP/OBS CARE(HIGH) HERRERA POLACNO MD May 08, 2024 08:44
[2024-05-08] MEDS: PANTOPRAZOLE 40 MG TAB PO SCH (12:03)
--- NOTE | 2024-05-08 12:28 | DVHINCON2 ---
Date of service: May 08, 2024 Referring Physician Joaquin Huynh MD Reason for Consultation Anemia, history of multiple myeloma History of Present Illness Jacob Figueroa is a 53-year-old male with multiple past medical history including CVA, DM, seizures, and hypertension who presented to [facility] ED for evaluation of abnormal labs. Laboratory data shows WBC 3.4, hemoglobin 4.8, hematocrit 13.8, platelets 87757, sodium 141, potassium 3.9, BUN 17, creatinine 1.08, glucose 85. Patient was given 2 units of PRBC, please see medication orders section in the computer. On my assessment, patient denies chest pain, no headache, no dizziness, no diaphoresis, no shortness of breaths, no nausea, no vomiting, no fever, no chills. Per caregiver patient was diagnosed in December of 2023 from multiple myeloma. As per prior notes, patient was found to have lytic lesions in the lumbar spine with elevated total protein and hyper gammaglobulin anemia in December 2023. 12/31/2023: White count 6.3 hemoglobin 8.3 MCV 103.6 platelets 165 retic count 1.02. Calcium 15.4 GFR 54 LDH 83 total protein 10 albumin 3.2. IgA 4895, IgM 12, IgG 346. The osseous bone survey showed mottled appearance of the bones and may represent malignancy. Serum immunofixation showed IgA monoclonal protein with kappa light chain. Serum protein electrophoresis shows M spike of 4.8. Free kappa light chain 1241 kappa/lambda ratio 318.21. A bone marrow aspiration biopsy was done be December 2023 which showed markedly hypercellular bone marrow for age with extensive involvement by kappa restricted plasma cell myeloma (> 90% of the bone marrow space involved) Markedly decreased myeloid and erythroid cells with adequate megakaryocytes. No blasts. Moderate reticulin fibrosis associated with plasma cell infiltrate. Congo red stain is negative. Iron is absent. 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 [employer] myeloid NGS study showed a single variant of unknown clinical significance. 12/29/2023: Bone survey showed mottled appearance of bones 12/27/2023: CT of the abdomen pelvis without contrast showed multiple small l ytic lesions of the visualized osseous structures. Mild loss of superior vertebral body heights of T11, L1, L2 and L4 of unknown chronicity. Enlarged prostate Patient was also treated for hypercalcemia with IV hydration and Zometa in January 2024. Past Medical History Multiple myeloma Brain aneurysm CVA, aphasia, left-sided weakness Chronic back pain with fracture Family History: Cerebrovascular accident (CVA) G8 FATHER Diabetes mellitus G8 MOTHER G8 FATHER Allergies: Coded Allergies: Morphine (Verified Allergy, Mild, 06/24/10) Home Meds Active Scripts Sucralfate (CARAFATE) 1 Gm Tab, 1 GM OR QIDACHS for 30 Days, #120 TAB Prov:[employer] 02/10/24 Naloxone HCl (Narcan) 4 Mg/0.1 Ml Spr, 4 MG NA UD for 30 Days, #1 SPRAY Prov:[employer] 01/02/24 Hydrocodone-Acetaminophen (Hydrocodone Bitartrate/AC 5-325 mg) 1 Tab Tab, 1 TAB PO Q8HP PRN for 30 Days, #90 TAB Prov:[employer] 01/02/24 Reported Medications Pantoprazole Sodium Sesquihydr (Protonix) 40 Mg Tab, 40 MG PO DAILY, #30 TAB 02/26/24 Ferrous Sulfate (Ferrous Sulfate) 325 Mg Tab, 325 MG PO TIDWM for 30 Days 02/26/24 Levodopa W/Carbidopa (Carbidopa/Levodopa) 1 Tab Tab, 1 TAB PO TID 02/09/24 Trazodone Hcl (Trazodone Hcl) 100 Mg Tab, 2 TAB PO HS 02/09/24 Dexamethasone (Decadron) 4 Mg Tb, 1 TAB PO DAILY 02/09/24 Acyclovir (Acyclovir) 400 Mg Tab, 1 TAB PO BID 02/09/24 Fotzcntgmwy-Hhkqwusvulqxy-Wedf (Darzalex Faspro 1800-64562 mg-Ut/15Ml) 1 Marge Marge, SC 02/09/24 Bortezomib (Bortezomib) 3.5 Mg Inj 02/09/24 Metformin Hydrochloride (Metformin Hcl) 500 Mg Tab, 1 TAB PO ONCE 12/29/23 Levetiracetam (Keppra) 500 Mg Tab, 1500 MG PO BID for 30 Days, MG 12/28/23 Levothyroxine Sodium (Levothyroxine Sodium) 50 Mcg Tab, 50 MCG PO QAM for 30 Days, MCG 12/28/23 Losartan Potassium (Losartan Potassium) 50 Mg Tab, 50 MG PO DAILY for 30 Days, MG 12/28/23 Escitalopram Oxalate (Lexapro) 20 Mg Tab, 1 TAB PO DAILY, #90 TAB 3 Refills 12/28/23 Atorvastatin Calcium (Lipitor) 10 Mg Tab, 1 TAB PO DAILY, #30 TAB 5 Refills 12/28/23 Carbidopa-Levodopa (Carbidopa/Levodopa Odt 10-100 mg) 1 Tab Tab, 1 TAB PO TID 12/28/23 Divalproex Sodium (Depakote) 500 Mg Tab, 1 TAB PO BID, #60 TAB 1 Refill 12/28/23 Discontinued Reported Medications Aspirin (Aspir-Low) 81 Mg Tab, 81 MG PO DAILY for 30 Days, MG 02/26/24 Current Medications Current Medications Medications (Trade) Dose Ordered Sig/Patito Route PRN Reason Start Time Stop Time Status Last Admin Atorvastatin Calcium (Lipitor) 10 mg HS PO 05/07/24 22:00 05/07/24 21:49 Pantoprazole Sodium (Protonix Tablet) 40 mg DAILY@0600 PO 05/08/24 09:30 05/08/24 12:03 Review of Systems Negative, otherwise as stated above. Vital Signs Vital Signs Date Time Temp Pulse Resp B/P (MAP) Pulse Ox O2 Delivery O2 Flow Rate FiO2 05/08/24 08:10 84 16 93 Room Air* 0 21 05/08/24 05:00 98.2 109/76 (87) 98.2 Physical Exam General Appearance: Alert, Oriented X3, Cooperative, No acute distress HEENT: Atraumatic, PERRLA, EOMI, Mucous membr. moist/pink Respiratory: Clear to auscultation, Normal air movement Cardiovascular: Regular rate, Normal S1, Normal S2, No murmurs Abdominal: Normal bowel sounds, Soft, No tenderness, No hepatospenomegaly, No masses Extremities: No clubbing, No cyanosis, No edema, Normal pulses, No tenderness/swelling Skin: No rashes, No breakdown, No significant lesion Neuro: Normal speech, Normal tone, Sensation intact, Cranial nerves 3-12 NL, Reflexes 2+, Other (Generalized weakness) Psych/Mental Status: Mental status NL, Mood NL Labs/Diagnostic Data Labs Test 05/08/24 06:18 05/08/24 06:04 05/07/24 19:26 05/07/24 10:00 Range/Units White Blood Count 3.2 L 4.4-10.8 10^3/uL Red Blood Count 2.03 L 4.5-5.90 10^6/uL Hemoglobin 7.1 L 13.5-17.5 g/dL Hematocrit 19.9 L 41.0-53.0 % Mean Corpuscular Volume 98.4 80.0-100.0 fL Mean Corpuscular Hemoglobin 34.8 H 28.0-32.0 pg Mean Corpuscular Hemoglobin Concent 35.4 32.0-36.0 g/dL Red Cell Distribution Width 23.8 H 11.8-14.3 % Platelet Count 86 L 140-450 10^3/uL Mean Platelet Volume 8.1 6.9-10.8 fL Neutrophils (%) (Auto) 37.0-80.0 % Lymphocytes (%) (Auto) 10.0-50.0 % Monocytes (%) (Auto) 0.0-12.0 % Basophils (%) (Auto) 0.0-2.0 % Neutrophils # (Auto) 1.6-8.6 10 ^3/uL Lymphocytes # (Auto) 0.4-5.4 10 ^3/uL Monocytes # (Auto) 0-1.3 10 ^3/uL Differential Total Cells Counted 100.0 100 Neutrophils % (Manual) 38 37.0-80.0 Band Neutrophils % (Manual) 1 Lymphocytes % (Manual) 52 H 10.0-50.0 Monocytes % (Manual) 7 0-12 Eosinophils % (Manual) 0 0-7 Basophils % (Manual) 0 0.0-2.0 Metamyelocytes % (manual) 0 Myelocytes % (Manual) 0 Promyelocytes % (Manual) 0 Blast Cells % (Manual) 0 Reactive Lymphocytes 2 Platelet Estimate Decreased Polychromasia Slight Anisocytosis (manual) Moderate Rouleaux Present Sodium Level 136 # 136-145 mmol/L Potassium Level 4.5 3.5-5.1 mmol/L Chloride Level 103 98-107 mmol/L Carbon Dioxide Level 20 20-31 mmol/L Anion Gap 13 5-15 Blood Urea Nitrogen 18 9-23 mg/dL Creatinine 0.91 0.700-1.30 mg/dL Glomerular Filtration Rate Calc 101 >90 mL/min BUN/Creatinine Ratio 19.8 10.0-20.0 Serum Glucose 78 74-106 mg/dL Calcium Level 9.5 8.7-10.4 mg/dL Total Bilirubin 0.5 0.2-1.0 mg/dL Aspartate Amino Transferase (AST) 22 13-40 U/L Alanine Aminotransferase (ALT) < 9 7-40 U/L Alkaline Phosphatase 44 L 46-116 U/L Total Protein 10.1 H 5.7-8.2 g/dL Albumin 2.8 L 3.2-4.8 g/dL POC Glucose 78 70-106 mg/dl Eosinophils (%) (Auto) 0.1 0.0-7.0 % Eosinophils # (Auto) 0 0-0.8 10 ^3/uL Basophils # (Auto) 0 0-0.2 10 ^3/uL Nucleated Red Blood Cells 0.8 % Poikilocytosis (manual) Slight Test 05/06/24 19:37 Range/Units Microcytosis Moderate Stomatocytes Few Assessment 1. IgA kappa multiple myeloma with multiple lytic lesions A bone marrow aspiration biopsy was done be December 2023 which showed markedly hypercellular bone marrow for age with extensive involvement by kappa restricted plasma cell myeloma (> 90% of the bone marrow space involved) Markedly decreased myeloid and erythroid cells with adequate megakaryocytes. No blasts. Moderate reticulin fibrosis associated with plasma cell infiltrate. [place] red stain is negative. Iron is absent. 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 [employer] myeloid NGS study showed a single variant of unknown clinical significance. 12/29/2023: Bone survey showed mottled appearance of bones 12/27/2023: CT of the abdomen pelvis without contrast showed multiple small lytic lesions of the visualized osseous structures. Mild loss of superior vert ebral body heights of T11, L1, L2 and L4 of unknown chronicity. Enlarged prostate 2. Anemia, secondary to multiple myeloma 3. Diabetes 4. Brain aneurysm and left-sided weakness and slurring of the speech 5. History of seizures 6. Hypothyroidism Plan/Recommendation Per patient, he has not been evaluated by Hematology as outpatient. Will ensure the patient has a follow-up with our clinic, as he requires systemic therapy for management for multiple myeloma. Recommend PRBC transfusion for goal hemoglobin greater than 7. Plan discussed with: Patient SOPHIA MCKAY MD May 08, 2024 12:28
[2024-05-09] VITALS (9 sets, daily range): BP systolic 108–121; BP diastolic 71–84; PULSE 64–84; RESP 15–18; TEMP 98–99.2; O2SAT 93–99
[2024-05-09 03:19] LABS: White Blood Cell 2.8 10^3/uL (4.4-10.8)
[2024-05-09 03:21] LABS: Hematocrit 22.1 % (41.0-53.0); Hemoglobin 7.9 g/dL (13.5-17.5); Mean Corpuscular Hemoglobin 34.7 pg (28.0-32.0); Mean Corpuscular Hgb Conc. 35.8 g/dL (32.0-36.0); Platelet Count (auto) 91 10^3/uL (140-450); Red Blood Cells 2.27 10^6/uL (4.5-5.90)
[2024-05-09 03:35] LABS: Anion Gap 13 (5-15); Carbon Dioxide 21 mmol/L (20-31); Chloride 103 mmol/L (98-107); Potassium 4.3 mmol/L (3.5-5.1); Sodium 137 mmol/L (136-145)
[2024-05-09 03:36] LABS: Calcium 9.5 mg/dL (8.7-10.4)
[2024-05-09 03:41] LABS: BUN/Creatinine Ratio 18.2 (10.0-20.0); Blood Urea Nitrogen 20 mg/dL (9-23); Glucose 78 mg/dL (74-106); Magnesium 1.7 mg/dL (1.6-2.6)
[2024-05-09 03:43] LABS: Red Cell Distribution Width 22.7 % (11.8-14.3)
[2024-05-09 03:44] LABS: Band Neutrophils % (manual) 0; Basophils % (manual) 0 (0.0-2.0); Blast Cells 0; Metamyelocytes % 0; Myelocytes % 0; Promyelocytes % 0; Reactive Lymphocytes 0
[2024-05-09 05:01] LABS: Eosinophils % (manual) 1 (0-7); Lymphocytes % (manual) 59 (10.0-50.0); Monocytes % (manual) 5 (0-12)
[2024-05-09 05:02] LABS: Anisocytosis Slight; Platelet Estimate Decreased
--- NOTE | 2024-05-09 07:56 | DVHPN2 ---
Progress Note - Dictate vital signs Vital Sign Date Time Temp Pulse Resp B/P (MAP) Pulse Ox O2 Delivery O2 Flow Rate FiO2 05/09/24 05:00 98.0 64 15 112/71 (85) 95 98.0 05/08/24 20:00 Room Air* 0 21 Total Intake and Output 05/08/24 05/08/24 05/09/24 15:00 23:00 07:00 Intake Total 940 ml 1720 ml 350 ml Balance 940 ml 1720 ml 350 ml medications Current Medications Medications Dose Ordered Sig/Patito Route Start Time Stop Time Status Last Admin Dose Admin Levothyroxine Sodium 50 mcg QAM@0600 PO 05/07/24 06:00 05/09/24 05:56 50 MCG Levetiracetam 100 ml @ 400 mls/hr BID IV 05/07/24 10:00 05/08/24 22:12 400 MLS/HR Carbidopa/Levodopa 1 tab TID PO 05/07/24 06:00 05/09/24 05:57 1 TAB Aspirin 81 mg DAILY PO 05/07/24 10:00 05/08/24 10:00 81 MG Atorvastatin Calcium 10 mg HS PO 05/07/24 22:00 05/08/24 22:13 10 MG Diagnostic Test (Pha) 1 strip ACHS 05/07/24 07:00 05/09/24 06:00 1 STRIP Insulin Human Regular ACHS SC 05/07/24 07:00 Dextrose 50 ml UD PRN IV 05/07/24 04:30 Sodium Chloride 10 ml Q8HR IV 05/07/24 06:00 05/09/24 05:59 10 ML Acetaminophen/ Hydrocodone Bitart 1 tab Q4HP PRN PO 05/07/24 04:30 Ondansetron HCl 4 mg Q4HP PRN IV 05/07/24 04:30 Docusate Sodium 100 mg BIDPRN PRN PO 05/07/24 04:30 Acetaminophen 650 mg Q6HP PRN PO 05/07/24 04:30 Nitroglycerin 0.4 mg Q5MINP PRN SL 05/07/24 04:30 Morphine Sulfate 2 mg Q30M PRN IV 05/07/24 04:30 Hold Pantoprazole Sodium 40 mg DAILY@0600 PO 05/08/24 09:30 05/09/24 05:56 40 MG laboratory and microbiology Laboratory Tests 05/09/24 03:05 Test 05/09/24 03:05 Range/Units Serum Glucose 78 74-106 mg/dL CC Plasma Assessment Blood Product Administration S: 1400 GOGO MEDELLIN NP May 09, 2024 07:56
--- NOTE | 2024-05-09 12:49 | DVHDS2 ---
Discharge Summary Date of Admission May 07, 2024 at 04:21 Date of Discharge: May 09, 2024 Labs/Diagnostic Data: Laboratory Results Test 05/09/24 11:16 05/09/24 03:05 05/08/24 06:18 05/07/24 19:26 POC Glucose 104 mg/dl (70-106) White Blood Count 2.8 10^3/uL (4.4-10.8) Red Blood Count 2.27 10^6/uL (4.5-5.90) Hemoglobin 7.9 g/dL (13.5-17.5) Hematocrit 22.1 % (41.0-53.0) Mean Corpuscular Volume 97.0 fL (80.0-100.0) Mean Corpuscular Hemoglobin 34.7 pg (28.0-32.0) Mean Corpuscular Hemoglobin Concent 35.8 g/dL (32.0-36.0) Red Cell Distribution Width 22.7 % (11.8-14.3) Platelet Count 91 10^3/uL (140-450) Mean Platelet Volume 7.8 fL (6.9-10.8) Neutrophils (%) (Auto) % (37.0-80.0) Lymphocytes (%) (Auto) % (10.0-50.0) Monocytes (%) (Auto) % (0.0-12.0) Basophils (%) (Auto) % (0.0-2.0) Neutrophils # (Auto) 10 ^3/uL (1.6-8.6) Lymphocytes # (Auto) 10 ^3/uL (0.4-5.4) Monocytes # (Auto) 10 ^3/uL (0-1.3) Differential Total Cells Counted 100.0 (100) Neutrophils % (Manual) 35 (37.0-80.0) Band Neutrophils % (Manual) 0 Lymphocytes % (Manual) 59 (10.0-50.0) Monocytes % (Manual) 5 (0-12) Eosinophils % (Manual) 1 (0-7) Basophils % (Manual) 0 (0.0-2.0) Metamyelocytes % (manual) 0 Myelocytes % (Manual) 0 Promyelocytes % (Manual) 0 Blast Cells % (Manual) 0 Reactive Lymphocytes 0 Platelet Estimate Decreased Anisocytosis (manual) Slight Sodium Level 137 mmol/L (136-145) Potassium Level 4.3 mmol/L (3.5-5.1) Chloride Level 103 mmol/L (98-107) Carbon Dioxide Level 21 mmol/L (20-31) Anion Gap 13 (5-15) Blood Urea Nitrogen 20 mg/dL (9-23) Creatinine 1.10 mg/dL (0.700-1.30) Glomerular Filtration Rate Calc 80 mL/min (>90) BUN/Creatinine Ratio 18.2 (10.0-20.0) Serum Glucose 78 mg/dL (74-106) Calcium Level 9.5 mg/dL (8.7-10.4) Magnesium Level 1.7 mg/dL (1.6-2.6) Polychromasia Slight Rouleaux Present Total Bilirubin 0.5 mg/dL (0.2-1.0) Aspartate Amino Transferase (AST) 22 U/L (13-40) Alanine Aminotransferase (ALT) < 9 U/L (7-40) Alkaline Phosphatase 44 U/L (46-116) Total Protein 10.1 g/dL (5.7-8.2) Albumin 2.8 g/dL (3.2-4.8) Eosinophils (%) (Auto) 0.1 % (0.0-7.0) Eosinophils # (Auto) 0 10 ^3/uL (0-0.8) Basophils # (Auto) 0 10 ^3/uL (0-0.2) Nucleated Red Blood Cells 0.8 % Test 05/07/24 10:00 05/06/24 19:37 Poikilocytosis (manual) Slight Microcytosis Moderate Stomatocytes Few Other Laboratory Tests 05/09/24 03:05 Brief Hx & Hospital Course: Patient was admitted on May 07, 2024 for severe symptomatic anemia. Patient has chronic anemia due to multiple myeloma. Patient was seen by oncologist Dr. Escobar outpatient. Patient has a history of a chronic brain aneurysm, CVA, and epilepsy. Patient was reportedly on baby aspirin. I did speak with patient's cousin who is his care provider and baby aspirin to be stopped at this time due to significant anemia. Patient's hemoglobin on admission was 4.8. Patient received 3 units of packed red blood cell. Current hemoglobin was 7.9. Patient will follow-up with outpatient oncology care to start chemotherapy tomorrow. Patient will also follow-up with hisPCP in 1 week. The patient received proper medical treatment and medications. Vital signs, Imaging and Laboratory Work was monitored daily. All consults recommendations were followed as provided. There were no complaints or new complaints upon discharge, all questions and concerns were answered. Patient was advised to return to the ER or call 911 if any headaches, dizziness, shortness of breath, chest pain, bleeding, fevers, or worsening of medical condition. Patient/Family was counseled about treatment plan, medications, possible side effects, patient verbalized understanding. All questions were answered to the best of my ability. The patient symptoms improved and they are okay to be DC. Condition at Discharge: Stable Final Diagnosis/Problems List Symptomatic anemia Chronic multiple myeloma Chronic brain aneurysm Thrombocyptopenia Hx CVA Discharge Disposition: Home Discharge Statement: "Patient was advised to return to the ER or call 911 if any headaches, dizziness, shortness of breath, chest pain, abdominal pain, bleeding, fevers, or worsening of medical condition. Patient was counseled about treatment plan, medications, possible side effects, patientverbalized understanding. All questions were answered to the best of my ability. This discharge took greater then 30 minutes in planning, reviewing documentation, counseling the patient, and discussing with other team members." ASSESSMENT ASSESSMENT Assessment GOGO MEDELLIN NP May 09, 2024 12:49
== END 2024-05-09 22:42 | disposition home or self-care (01) | DRG 842 ==
LOC: ER 18:35 → TELE 05-07 04:21 → TELE-EAST 05-07 22:00
PROVIDERS: ADMIT Nurse Practitioner Family; ATTEND Nurse Practitioner
PROC: 30233N1 Transfusion of Nonautologous Red Blood Cells into Peripheral Vein, Percutaneous Approach (ICD-10-PCS; principal; 2024-05-07)
DX: C90.00 Multiple myeloma not having achieved remission (principal); D63.8 Anemia in other chronic diseases classified elsewhere; E11.9 Type 2 diabetes mellitus without complications; E78.00 Pure hypercholesterolemia, unspecified; E03.9 Hypothyroidism, unspecified; I67.1 Cerebral aneurysm, nonruptured; I10 Essential (primary) hypertension; D63.0 Anemia in neoplastic disease; N40.0 Benign prostatic hyperplasia without lower urinary tract symptoms; G89.29 Other chronic pain; G40.909 Epilepsy, unspecified, not intractable, without status epilepticus; Z82.3 Family history of stroke; Z88.5 Allergy status to narcotic agent; Z86.73 Personal history of transient ischemic attack (TIA), and cerebral infarction without residual deficits; Z83.3 Family history of diabetes mellitus
CPT/HCPCS: 36415; 80048; 80053; 82962; 83735; 85007; 85025; 85027; 86850; 86900; 86901; 86920; 86922; 96360; G0378